=== PATIENT | male | born 1960 | race Caucasian/White ===

== ENCOUNTER → 2016-11-30 | Outpatient (CLI) | payer BC | END | disposition home or self-care (01) | LOC: LABPAT 07:17 | PROVIDERS: ATTEND Orthopaedic Surgery | DX: Z01.812 Encounter for preprocedural laboratory examination (principal) | CPT/HCPCS: 87070 ==

== ENCOUNTER 2016-12-06 07:30 | Inpatient (IN) | payer BC ==
[2016-11-29 14:13] VITALS: BMI 39.9
[~2016-12-06 07:30] MED LIST: ACETAMINOPHEN TAB 500 MG TAB PO ONE; DEXAMETHASONE SOD PHOSPHATE 10 MG/ML 1 ML VIAL IV ONE; HYDROmorphone 1 MG/ML 1 ML SYRINGE IVP PRN; MELOXICAM 7.5 MG TAB PO ONE; MIDAZOLAM 2 MG/2 ML VIAL IV PRN; ONDANSETRON 4 MG/2 ML VIAL IVP ONE; ROPIVACAINE 246.25 MG, EPINEPHrine 0.5 MG, KETOROLAC 30 MG, cloNIDine HCL/PF 80 MCG, WA... MISCELLANE ONE; SCOPOLAMINE 1.5MG/72HR PATCH TRANSDERM ONE; TRANEXAMIC ACID 1,000 MG in SODIUM CHLORIDE 0.9% 100 ML IVPB ONE; ceFAZolin 3 GM in SODIUM CHLORIDE 0.9% 100 ML IVPB ONE
[2016-12-06] MEDS: LACTATED RINGERS 1,000 ML IV SCH ×2 (08:40→20:14)
[2016-12-06] MEDS ORDERED: LIDOCAINE 1% 20 ML VIAL (10MG/ML) FOR IV START INTRADERMA ONE (08:40)
[2016-12-06] MEDS ORDERED: MIDAZOLAM 2 MG/2 ML VIAL IV ONE (08:57)
[2016-12-06] MEDS ORDERED: ROPIVACAINE 1,100 MG, SODIUM CHLORIDE 0.9% 330 ML MISCELLANE PRN ×2 (09:19)
--- NOTE | 2016-12-06 09:20 | P.ONQ ---
Anesthesiology Proc Note - PNB - Peripheral Nerve Block Performed Left Adductor Canal Time Out Performed: Yes Procedure Start Time: :40 Procedure Stop Time: :45 Indication: Analgesia Sedation Type: Sedate with meaningful contact maintained Preparation: Sterile Prep Position: Supine Catheter: Indwelling Needle Types: On-Q Needle Size: 50mm (2") Needle Gauge: 18 Technique: Ultrasound Injectate: 0.5% Ropivacaine (see comment for volume) Blood Aspirated: No Pain Paresthesia on Injection Noted: No Resistance on Injection: Normal Events: Uneventful and Well Tolerated
[2016-12-06] MEDS ORDERED: SODIUM CHLORIDE 0.9% 100 ML BAG ONE (10:01)
[2016-12-06] MEDS ORDERED: GLYCOPYRROLATE 0.2 MG/ML 2 ML VIAL ONE (10:01)
[2016-12-06] MEDS ORDERED: MIDAZOLAM 2 MG/2 ML VIAL ONE (10:01)
[2016-12-06] MEDS ORDERED: TRANEXAMIC ACID 1,000 MG/10 ML VIAL ONE (10:01)
[2016-12-06] MEDS ORDERED: PROPOFOL 10 MG/ML 20 ML VIAL IV ONE (10:01)
[2016-12-06] MEDS ORDERED: LACTATED RINGERS 1,000 ML IV ONE (10:30)
[2016-12-06] MEDS ORDERED: ceFAZolin 3,000 MG in SODIUM CHLORIDE 0.9% IRRIGATIO 3,000 ML IRRIGATION ONE (10:33)
--- NOTE | 2016-12-06 11:28 | P.OP ---
Date of Procedure: 12/06/16 Preoperative Diagnosis: Severe osteoarthritis left knee Postoperative Diagnosis: Severe osteoarthritis left knee Procedure(s) Performed: Left total knee arthroplasty Implants: Sanchez and Nephew Oxinium femoral component size 7, left Sanchez & Nephew Taryn II left nonporous tibial baseplate size 7 Sanchez & Nephew size 11 mm Legion XLPE high flexion articular insert, size 7-8 Sanchez & Nephew Taryn II resurfacing patellar component, 35 mm All components were cemented using Leonid bone cement.. The articulation is ceramic on polyethylene. Anesthesia: spinal Surgeon: Elvin Torres Seamer Elastic Band #1: Mildred Cano Estimated Blood Loss (ml): 50 Pathology: other Condition: stable Disposition: PACU Indications for Procedure: After failure of conservative treatment we discussed the surgical and nonsurgical treatment options at length. Patient wishes to proceed with a total knee arthroplasty. Complications specific to this procedure were discussed at length, including but not limited to infection, bleeding, stiffness , and nerve injury. Patient is aware of all these complications and informed consent was obtained Operative Findings: The operative findings are consistent with severe osteoarthritis of the left knee Description of Procedure: Patient was seen in the preoperative area consent was reviewed and operative site was marked with a skin marker. Patient was then brought to the operating room and given preoperative antibiotics intravenously. A spinal anesthetic was administered by the anesthesia department. A Rivera catheter was then placed by the nursing staff. A tourniquet was placed on the upper thigh and the lower extremity was prepped and draped in usual sterile fashion. A gram of transexamic acid was given. A universal timeout was then performed which confirmed the patient's name, surgical site, ALLERGIES, and consent. The lower extremity was then exsanguinated and tourniquet was inflated to 350 mmHg. A standard and anterior midline approach to the knee was performed. The skin and subcutaneous tissue was dissected down to the patellar tendon. A medial parapatellar arthrotomy was then performed. The knee was then extended, the patellar was everted, and the knee was again flexed. Anterior horns of both menisci were excised, and a release was performed to the posterior medial aspect of the knee. On gross visual inspection, there was complete loss of articular cartilage in the medial and patellofemoral joint spaces. There was also significant cartilage damage in the lateral compartment. There were multiple periarticular osteophytes which were then removed with a Ronguer. The femoral canal was then opened with the appropriate drill, and the intramedullary femoral cutting guide was then placed and set for 4 of valgus. The distal femoral cutting block was then pinned in place, and the distal femur was then cut. The cutting block was then removed and the cut was checked for flatness. Next, the sizing guide was then placed and set for 3 external rotation based off of the epicondylar axis and Whitesides line. After the femur was sized, the appropriate 4-in-1 cutting block was then pinned in place. The anterior condyles were cut without notching. The posterior and chamfer cuts were performed while protecting the collateral ligaments. The cutting block was then removed, and the femoral canal was plugged with autologous bone. Attention was then directed to the tibia. The remaining ACL was removed with a Ronguer, and the tibia was then gently subluxed forward with a large bent knee retractor. Any remaining menisci was excised. The posterior lateral corner was cauterized in order to cauterize the lateral geniculate artery. The extra medullary tibial cutting guide was then placed, set for the appropriate rotation , slope, and depth of resection. The proximal tibia cutting guide was then pinned in place. Proximal tibia was then cut and sized. Next trials were then placed with the appropriate-sized insert. The knee was able to fully extend and flex to 130 and was stable throughout all range of motion. The knee was then extended, patella everted. Patella was then measured, and then using an osteotomy guide, the patella was cut at the appropriate level. The patella was then measured and drilled and the patella trial was then placed. The knee was then taken through range of motion with the patella trial and the patella tracked normally. The knee was then extended patella trial was then removed and the patella was everted. Knee was then flexed and lug holes were drilled through the femoral trial and the femoral trial was then removed. The tibial was then exposed, and the tibial broach guide was then pinned in place after it was set for the appropriate rotation to allow for the most coverage without overhang. The tibia was then broached. The cut surfaces of bone were then irrigated with pulsatile lavage. The posterior structures were injected with the ropivacaine solution. The knee was also irrigated with Irrisept solution. The components were then opened, the cement was mixed, and the components were then cemented in place. The cement was allowed to harden with the knee in full extension. While the cement was hardening, the remaining soft tissues were injected with the ropivacaine solution. After the cemented hardened. The tourniquet was released, and hemostasis was obtained. A second gram of transexamic acid was given. The knee was again irrigated. The knee was again taken through range of motion and found to be stable throughout all range of motion of 0-130, and the patella tracked normally. The fascia was then closed with #2 strata fix suture. The subcutaneous tissue was closed with 3-0 Vicryl and 3-0 strata fix. Dermabond tape was used for the skin, and the patient was placed in a sterile dressing. Patient was then transferred to recovery room in stable condition. The switchboard operator assistant JUSTINO East was required due the complexity surgery and the need for a skilled surgical nurse practitioner. She assisted in positioning, draping , retraction, and closure of the wound.
[2016-12-06] MEDS ORDERED: NALOXONE 0.4 MG/ML 1 ML VIAL IV PRN (11:56)
[2016-12-06] MEDS ORDERED: HYDROmorphone 1 MG/ML 1 ML SYRINGE IVP PRN ×3 (11:56)
[2016-12-06] MEDS ORDERED: BISACODYL 10 MG SUPP RECTAL PRN (11:56)
[2016-12-06] MEDS ORDERED: DIAZEPAM 5 MG TAB PO PRN ×2 (11:56)
[2016-12-06] MEDS ORDERED: ONDANSETRON 4 MG/2 ML VIAL IVP PRN (11:56)
[2016-12-06] MEDS ORDERED: HYDROcodone/APAP 5-325MG 1 EACH TAB PO PRN (11:56)
[2016-12-06] MEDS ORDERED: MAGNESIUM HYDROXIDE 2,400 MG/10 ML CUP PO PRN (11:56)
--- NOTE | 2016-12-06 12:17 | XR ---
EXAMINATION TYPE: XR knee limited LT DATE OF EXAM: 12/06/2016 12:12 PM COMPARISON: NONE HISTORY: 56-year-old male evaluation for postop abnormality and alignment TECHNIQUE: Portable AP and crosstable lateral views FINDINGS: Images show placement of left total knee arthroplasty. Both distal femoral and proximal tibial compon ents of the prosthesis are well seated without periprosthetic fracture. Alignment is grossly anatomic . There is anterior soft tissue swelling and soft tissue gas as well as intra-articular air related t o recent operation. IMPRESSION: Uncomplicated postoperative appearance left total knee arthroplasty.
[2016-12-06] MEDS: SODIUM CHLORIDE 0.9% 1,000 ML IV SCH (14:45)
[2016-12-06 15:31] VITALS: RESP 16
[2016-12-06] MEDS: ceFAZolin 3 GM in SODIUM CHLORIDE 0.9% 100 ML IVPB SCH (16:55)
[2016-12-06] MEDS: ASPIRIN 325 MG TAB PO SCH (20:12)
[2016-12-06] MEDS: SENNOSIDES-DOCUSATE SODIUM 1 EACH TAB PO SCH (20:12)
[2016-12-07] MEDS: SODIUM CHLORIDE 0.9% 1,000 ML IV SCH ×3 (00:21→20:21)
[2016-12-07] MEDS: ceFAZolin 3 GM in SODIUM CHLORIDE 0.9% 100 ML IVPB SCH (00:21)
[2016-12-07] MEDS: hydrOXYzine PAMOATE 25 MG CAP PO PRN ×4 (05:07→21:29)
[2016-12-07] MEDS: HYDROcodone/APAP 5-325MG 1 EACH TAB PO PRN ×4 (05:07→21:29)
[2016-12-07 07:30] LABS: Basophils # (A) 0.1 k/uL (0-0.2); Basophils % (A) 1 %; CH 30.3; CHCM 33.6; Eosinophils % (A) 0 %; HCT 42.6 % (39.0-53.0); HGB 13.7 gm/dL (13.0-17.5); Luc # (Auto) 0.26; Luc % (Auto) 3; Lymphocytes # (A) 1.4 k/uL (1.0-4.8); Lymphocytes % (A) 17 %; MCH 29.2 pg (25.0-35.0); MCHC 32.2 g/dL (31.0-37.0); MCV 90.7 fL (80.0-100.0); Mean Platelet Volume 8.2; Monocytes # (A) 0.4 k/uL (0-1.0); Monocytes % (A) 5 %; Neutrophils # (A) 6.1 k/uL (1.3-7.7); Neutrophils % (A) 74 %; RDW 14.1 % (11.5-15.5); WBC 8.3 k/uL (3.8-10.6); WBC (Perox) 8.73
[2016-12-07] MEDS: ASPIRIN 325 MG TAB PO SCH ×2 (07:53→20:26)
[2016-12-07] MEDS: LISINOPRIL-HCTZ 10-12.5 MG 1 EACH TAB PO SCH (07:53)
[2016-12-07] MEDS: MELOXICAM 7.5 MG TAB PO SCH (07:53)
--- NOTE | 2016-12-07 11:52 | CONS ---
DATE OF CONSULTATION: 12/06/2016 REASON FOR CONSULTATION: Medical management requested by Dr. Torres. CONSULTATION: This is a pleasant 56-year-old patient of Dr. Sheikh whose chronic stable medical conditions include hypertension, constipation, and osteoarthritis. Patient did undergo a left total knee arthroplasty. Post procedure sitting up in a chair, tolerating a diet. No nausea, vomiting. No cardiac history. Pain it controlled. REVIEW OF SYSTEMS: CONSTITUTIONAL: None. HEENT: None. RESPIRATORY: None. CARDIOVASCULAR: None. GASTROINTESTINAL: Constipation. GENITOURINARY: None. MUSCULOSKELETAL: Aches and pains in the joints especially the knees and ankles. DERMATOLOGICAL: None. HEMATOLOGICAL: None. LYMPHATIC: None. PSYCHIATRY: None. NEUROLOGICAL: None. PAST MEDICAL HISTORY: History of hypertension, constipation, osteoarthritis. PAST SURGICAL HISTORY: Bowel resection for ruptured colon, ORIF of the left hand, arthroscopy of the knees. SOCIAL HISTORY: Patient drinks about 3 days a week. Works at [employer]. . No smoking. FAMILY HISTORY: Pancreatic cancer. HOME MEDICATIONS: 1. Claritin 10 mg a day. 2. Zestoretic /12.5, 1 tablet daily. 3. Motrin 800 mg t.i.d. p.r.n. ALLERGIES: None. On examination, temperature 97.6, pulse 70, respiration 16, blood pressure 127/53, pulse ox 94% on room air. GENERAL APPEARANCE: Well built, BMI of 39.5. Sitting up in a chair got up, comfortable. EYES: Pupils equal. Conjunctivae normal. HEENT: Oral cavity normal. NECK: JVD not raised. Mass not palpable. RESPIRATORY: Effort normal. Lungs are clear. CARDIOVASCULAR: First and second sounds normal. No edema. ABDOMEN: Soft, nontender. Liver and spleen not palpable. LYMPHATIC: No lymph node palpable in the neck or axillae. PSYCHIATRY: Alert and oriented x3. Mood and affect normal. NEUROLOGICAL: Pupils equal. Cranial nerves grossly intact. Power and sensation grossly intact. MUSCULOSKELETAL: Some osteoarthritis in the hands and right knee. Left knee in a dressing. INVESTIGATIONS: No blood work. ASSESSMENT: 1. Left total knee arthroplasty. 2. Primary osteoarthritis of the knees and probably the hands. 3. Essential hypertension. 4. Obesity, body mass index of 39.9. PLAN: Patient's lisinopril and hydrochlorothiazide will be started. The patient on DVT prophylaxis with aspirin. Pain control is in place. Patient should see a dietitian for weight loss measures and follow up with family doctor for the same. Thank you, Dr. Torres.
--- NOTE | 2016-12-07 12:33 | P.PN ---
Subjective Principal diagnosis: Status post left total knee This is a pleasant 56-year-old gentleman who is status post left total knee arthroplasty. The patient is seen and evaluated at bedside this morning. His pain is under fair control. He's been up walking with physical therapy. He has no other complaints this time. Objective - Vital Signs Vital signs: Vital Signs Temp 98.1 F 12/07/16 07:00 Pulse 95 12/07/16 08:38 Resp 16 12/07/16 08:00 BP 134/84 12/07/16 08:38 Pulse Ox 92 L 12/07/16 07:00 Intake & Output 12/06/16 12/07/16 12/07/16 18:59 06:59 18:59 Intake Total 1861 360 Output Total 50 400 400 Balance 1811 -400 -40 Weight 122.47 kg 122.47 kg Intake: IV 1501 Oral 360 360 Output: Urine 400 400 Estimated Blood Loss 50 Other: Voiding Method Toilet Toilet Urinal Urinal # Voids 1 1 - Exam The patient does not appear in acute distress. Alert and orientated 3. Dressing is clean dry and intact. Incision appears fine with no erythema or active drainage. Calf is soft and nontender. Good foot and ankle motion without difficulty. Sensation and circulatory status is intact. - Labs CBC & Chem 7: 12/07/16 07:05 Labs: Abnormal Lab Results - Last 24 Hours (Table) 12/07/16 Range/Units 07:05 Plt Count 131 L (150-450) k/uL Assessment and Plan (1) Primary osteoarthritis of left knee Status: Acute (2) Status post left knee replacement Status: Acute Plan: 1. Continue with routine postoperative care. 2. Anticoagulation with aspirin. 3. Physical therapy and CPM today. 4. Appreciate input from medicine. 5. Anticipate discharge to home with home care likely tomorrow.
[2016-12-07] MEDS: LACTATED RINGERS 1,000 ML IV SCH (20:21)
[2016-12-07] MEDS: SENNOSIDES-DOCUSATE SODIUM 1 EACH TAB PO SCH (20:26)
--- NOTE | 2016-12-07 23:06 | PN ---
DATE OF SERVICE: 12/07/2016 PRESENTING COMPLAINT: Left knee surgery. INTERVAL HISTORY: Patient is status post left knee surgery, doing better. Did work with Physical Therapy. No chest pain, shortness of breath. nausea, vomiting. Did tolerate his diet. Review of systems done for constitutional, cardiovascular, GI, pulmonary; relevant findings as above. Current medications are reviewed. On examination, temperature 97.6, pulse 65, respiration 16, blood pressure 109/77, pulse ox 92% on room air. GENERAL APPEARANCE: Lying in bed, comfortable. EYES: Pupils equal. Conjunctivae normal. NECK: JVD not raised. Mass not palpable. RESPIRATORY: Effort normal. Lungs are clear. CARDIOVASCULAR: First and second sounds normal. No edema. ABDOMEN: Soft, nontender. Liver and spleen not palpable. PSYCHIATRY: Alert and oriented x3. Mood and affect normal. INVESTIGATIONS: Potassium 4.7. ASSESSMENT: 1. Left total knee arthroplasty. 2. Primary osteoarthritis of the knees and probably the hands. 3. Essential hypertension. 4. Obesity; body mass index of 39.9. 5. Thrombocytopenia, cause unknown. PLAN: Continue current medication and treatment plan. Will repeat a CBC in the morning to make sure the ( ) no further significant drop. Care was discussed with the patient.
[2016-12-08 01:34] VITALS: PULSE 74
[2016-12-08] MEDS: hydrOXYzine PAMOATE 25 MG CAP PO PRN (04:52)
[2016-12-08] MEDS: HYDROcodone/APAP 5-325MG 1 EACH TAB PO PRN (04:52)
[2016-12-08 07:24] VITALS: BP 125/79; TEMP 98
[2016-12-08 07:29] LABS: Basophils # (A) 0.1 k/uL (0-0.2); Basophils % (A) 1 %; CH 30.3; CHCM 33.2; Eosinophils # (A) 0.2 k/uL (0-0.7); Eosinophils % (A) 3 %; HCT 41.2 % (39.0-53.0); HDW 2.62; HGB 13.5 gm/dL (13.0-17.5); Luc # (Auto) 0.28; Luc % (Auto) 3; Lymphocytes # (A) 1.3 k/uL (1.0-4.8); Lymphocytes % (A) 16 %; MCH 30.1 pg (25.0-35.0); MCHC 32.8 g/dL (31.0-37.0); MCV 91.6 fL (80.0-100.0); Mean Platelet Volume 8.2; Monocytes # (A) 0.5 k/uL (0-1.0); Monocytes % (A) 6 %; Neutrophils # (A) 5.9 k/uL (1.3-7.7); Neutrophils % (A) 71 %; WBC 8.3 k/uL (3.8-10.6); WBC (Perox) 8.58
--- NOTE | 2016-12-08 08:36 | P.DS ---
Providers Date of admission: 12/06/16 07:47 Expected date of discharge: 12/08/16 Attending physician: Elvin Torres Consults: 12/06/16 11:56 Consult Physician Routine Consulting Provider: Constantine Parsons Consult Reason/Comments: medical management Do you want consulting provider notified?: Yes Primary care physician: Stated None - Discharge Diagnosis(es) (1) Primary osteoarthritis of left knee Current Visit: Yes Status: Acute (2) Status post left knee replacement Current Visit: Yes Status: Acute Hospital Course: This is a pleasant 56-year-old gentleman last seen in our office with complaints of left knee pain. Patient has known history of degenerative arthritis of the left knee and presented to discuss options. After discussion and consideration, the patient elected to proceed with a left total knee arthroplasty. Patient was seen preoperatively, and medically cleared for surgery by his primary care physician. Patient was admitted to [facility] and underwent left total knee arthroplasty with Dr. Elvin Torres. The procedure was performed without complications or sequelae. The patient is seen and evaluated at bedside today. Pain is well-controlled. Patient has no new complaints today and denies any fevers, chills, nausea, vomiting, or shortness of breath. Vital signs are stable. Dressing is clean dry and intact. Incision looks fine with no erythema or active drainage. Calf is soft and nontender. Patient has full foot and ankle motion without difficulty. Patient's left lower extremity is neurovascularly intact. The patient is orthopedically stable for discharge today. Pertinent Studies: Laboratory Tests 12/08/16 06:53 WBC 8.3 RBC 4.50 Hgb 13.5 Hct 41.2 MCV 91.6 Patient Condition at Discharge: Good Plan - Discharge Summary New Discharge Prescriptions: Aspirin 325 mg PO BID #60 tab HYDROcodone/APAP 7.5-325MG [Ullin 7.5] 1 - 2 each PO Q6HR PRN #90 tab PRN Reason: Pain Sennosides-Docusate Sodium [Senokot-S] 2 tab PO DAILY #60 tablet Discharge Medication List Ibuprofen [Motrin] 800 mg PO TID PRN 11/29/16 [History] Lisinopril-Hctz 10-12.5 mg [Zestoretic 10-12.5] 1 tab PO QAM 11/30/16 [History] Loratadine [Claritin] 10 mg PO DAILY 12/06/16 [History] Aspirin 325 mg PO BID #60 tab 12/08/16 [Rx] HYDROcodone/APAP 7.5-325MG [Ullin 7.5] 1 - 2 each PO Q6HR PRN #90 tab 12/08/16 [ Rx] Sennosides-Docusate Sodium [Senokot-S] 2 tab PO DAILY #60 tablet 12/08/16 [Rx] Follow up Appointment(s)/Referral(s): [facility], [NON-STAFF] - 1 Week Elvin Torres DO [Doctor of Osteopathic Medicine] - 2 Weeks Ambulatory/Diagnostic Orders: Continuous Passive Motion (CPM) Machine [DME.AMB1] Location: Determined By Patient Activity/Diet/Wound Care/Special Instructions: call [facility] when you get home to deliver your CPM - [phone] Weightbearing as tolerated with a walker CPM daily Daily dressing changes, keep incision clean and dry [facility] with questions or concerns [phone] Discharge Disposition: HOME WITH HOME HEALTH SERVICES
--- NOTE | 2016-12-08 09:19 | P.PN ---
Progress Note - Text The patient is status post left adductor canal catheter placement. The catheter was placed for postoperative pain control, status post total left arthroplasty, postoperative day #2. Ropivacaine 0.2% is infusing at 8 mLs per hour. The patient has no complaints of left lower extremity numbness or weakness. Patient's VAS score is 2-10. Assessment: Patient's adductor canal catheter is in place and working appropriately. Plan: continue infusion and adjust it as needed.
[2016-12-08] MEDS: LISINOPRIL-HCTZ 10-12.5 MG 1 EACH TAB PO SCH (09:26)
[2016-12-08] MEDS: ASPIRIN 325 MG TAB PO SCH (09:26)
[2016-12-08] MEDS: MELOXICAM 7.5 MG TAB PO SCH (09:26)
--- NOTE | 2016-12-09 08:36 | PN ---
DATE OF SERVICE: 12/08/2016 PRESENTING COMPLAINT: Left knee surgery. INTERVAL HISTORY: Patient is status post left knee surgery. Seen by me this morning. Continues to do better. No chest pain or short of breath. Tolerating his diet. Review of systems done for constitutional, cardiovascular, GI, pulmonary, musculoskeletal; relevant findings as above. Current medications are reviewed. On examination, temperature 98, pulse 71, respirations 16, blood pressure 125/79, pulse ox 94% on room air. GENERAL APPEARANCE: Sitting up. Comfortable. EYES: Pupils equal. Conjunctivae normal. NECK: JVD not raised. Mass not palpable. RESPIRATORY: Effort normal. Lungs are clear. CARDIOVASCULAR: First and second sounds normal. No edema. ABDOMEN: Soft, nontender. Liver and spleen not palpable. PSYCHIATRY: Alert and oriented x3. Mood and affect is normal. INVESTIGATIONS: Hemoglobin 13.5. ASSESSMENT: 1. Left total knee arthroplasty. 2. Primary osteoarthritis of the knees and probably the hands. 3. Essential hypertension. 4. Obesity, body mass index 39.9. 5. Thrombocytopenia, cause unknown. PLAN: Stable. Continue current medication and treatment plan. Platelets are corrected. The patient to follow with his family doctor.
== END 2016-12-08 11:42 | disposition home health service (06) | DRG 470 ==
LOC: 2ORMAIN 07:47 → 3SUR 11:58
PROVIDERS: ADMIT Orthopaedic Surgery; ATTEND Orthopaedic Surgery
PROC: 0SRD0J9 Replacement of Left Knee Joint with Synthetic Substitute, Cemented, Open Approach (ICD-10-PCS; principal; 2016-12-06 09:40)
DX: M17.12 Unilateral primary osteoarthritis, left knee (principal); D69.6 Thrombocytopenia, unspecified; I10 Essential (primary) hypertension; E66.9 Obesity, unspecified; Z68.39 Body mass index [BMI] 39.0-39.9, adult; Z79.899 Other long term (current) drug therapy
CPT/HCPCS: 81001; 85025; 87070; 88300

== ENCOUNTER → 2017-07-14 | Outpatient (CLI) | payer BC ==
--- NOTE | 2017-07-14 20:07 | CONS ---
CONSULTATION DATE OF SERVICE: 07/14/2017. 57-year-old gentleman who has been evaluated in [facility] for possible obstructive sleep apnea-hypopnea syndrome. HISTORY OF PRESENT ILLNESS/SLEEP WAKE EVALUATION: Patient's usual sleep schedule on working days from around 10:00 p.m. until 4:45 a.m. and on weekends from midnight until 8:00 to 9:00 a.m. No problems with falling asleep, although he has TV set in bedroom. He prefers to sleep on the side position not to sleep on the back. He snores, wakes up from sleep 2 times with 1 episode of nocturia during the day. Sometimes he feels tiredness. [place] Sleepiness Scale is 7. No history of hypnagogic hallucinations, sleep paralysis or cataplexy. PAST MEDICAL HISTORY: Positive for hypertension. PAST SURGICAL HISTORY: Left knee total replacement, colon resection for perforation in 2008, right knee arthroscopic surgery. MEDICATIONS: Lisinopril, Motrin. SOCIAL HISTORY: Negative for smoking. Alcohol consumption about 5 beers 3 times per week. REVIEW OF SYSTEMS: Awakenings from sleep, sometimes feeling tiredness and sleepy during the day. No fevers No double vision. No recent chest pain. No shortness of breath. No abdominal pain. No bleeding episodes. No blood in urine. No seizure episodes. FAMILY HISTORY: Hypertension, arthritis, cancer. PHYSICAL EXAM: GENERAL: gentleman without distress VITAL SIGNS: BP 186/93, HR 78, RR 16, height 5 feet 7 inches, weight 282, BMI 44.1, neck 20 inches in circumference, temperature 98.2, oxygen saturation on room air 97% HEENT: PERRLA, EOMI. Evaluation of oropharynx showed extremely low position of soft palate, small oropharyngeal air space, restriction of nasal breathing bilaterally, probable nasal septum deviation. Redness of the skin face. History of possible nasal fracture in the past secondary to sport activity. NECK: Supple. No JVD. Thyroid is not palpable. LUNGS: clear to percussion and to auscultation. Good air exchange. No wheezing or rhonchi. HEART: S1, S2 regular. No murmurs, gallops or rubs. ABDOMEN: Obese. Soft and nontender. Bowel sounds are present. No organomegaly appreciated. EXTREMITIES: 1+ bilateral ankle edema. No cyanosis or clubbing. COMPUTER SYSTEMS MANAGER: Awake, alert and oriented x3. Cranial nerves II through VII intact. There is no fasciculation or atrophy noted. No focal deficits observed. IMPRESSION: 1. Snoring, awakenings from sleep, extremely small oropharyngeal air space, restriction of nasal breathing, very wide neck 20 inches, obstructive sleep apnea- hypopnea syndrome. 2. Obesity, BMI 44.1. 3. Hypertension. The patient did not take his medications today. 4. Status post colon resection for perforation. 5. Status post total left knee replacement. 6. Status post right knee arthroscopic surgery. 7. Nasal septum deviation with restriction of nasal breathing bilaterally. 8. History of possible nasal fracture in the past secondary to sport activity. 9. Alcohol consumption up to 5 beers 3 times per week. PLAN: 1. Polysomnography for evaluation of patient's breathing during sleep. 2. CPAP/BiPAP titration if sleep study confirms obstructive sleep apnea-hypopnea syndrome. 3. Preferable position during sleep on the side. 4. No driving if patient feels any sleepiness. Patient is aware of civil and criminal liability for unsafe driving. 5. I will see the patient for follow-up visit to explain results of the testing and following plan. Thank you very much for referring this patient for consultation. Sincerely, Donnell Wadsworth MD, PhD, FAASM Diplomat of [place] [employer], Sleep Medicine Board by [place] [employer] [place] [employer] Powerplant Mechanic of [facility] [place] MMODL / LIZBETN: [id number] /
== END ==
LOC: SLEEP 16:16
PROVIDERS: ATTEND Internal Medicine
DX: G47.33 Obstructive sleep apnea (adult) (pediatric) (principal); E66.9 Obesity, unspecified; Z68.41 Body mass index [BMI] 40.0-44.9, adult; I10 Essential (primary) hypertension; Z96.652 Presence of left artificial knee joint
CPT/HCPCS: 99211

== ENCOUNTER 2021-01-29 19:46 | Inpatient (IN) | payer BC, OTHER ==
[2021-01-29] MEDS ORDERED: NITROGLYCERIN SL TABS 0.4 MG TAB SUBLINGUAL PRN (20:14)
[2021-01-29] MEDS ORDERED: HEPARIN SODIUM 1,000 UN/ML (10ML VL) IV ONE (20:17)
[2021-01-29] MEDS ORDERED: HEPARIN SODIUM 1,000 UN/ML (10ML VL) IV PRN (20:17)
[2021-01-29 20:19] LABS: Glucose,Whole Blood 130 mg/dL (75-99)
[2021-01-29] MEDS ORDERED: METOCLOPRAMIDE 5 MG/ML 2 ML VIAL IVP STA (20:21)
[2021-01-29] MEDS ORDERED: FUROSEMIDE 10 MG/ML 4 ML VIAL IV STA (20:23)
[2021-01-29 20:29] LABS: Basophils % (A) 1 %; Eosinophils % (A) 1 %; Lymphocytes # (A) 0.7 k/uL (1.0-4.8); Lymphocytes % (A) 43 %; MCH 31.8 pg (25.0-35.0); MCHC 34.6 g/dL (31.0-37.0); Mean Platelet Volume 7.9; Monocytes # (A) 0.1 k/uL (0-1.0); Monocytes % (A) 3 %; Neutrophils % (A) 51 %; Platelet Count 117 k/uL (150-450); RBC 6.16 m/uL (4.30-5.90); RDW 14.1 % (11.5-15.5); WBC 1.5 k/uL (3.8-10.6)
[2021-01-29] MEDS ORDERED: HEPARIN SOD,PORK IN 0.45% NACL 25,000 UNIT in 0.45% NACL 1 250ML.BAG IV SCH (20:30)
--- NOTE | 2021-01-29 20:34 | ED ---
General Adult HPI - General Chief complaint: Shortness of Breath Stated complaint: TAJ Time Seen by Provider: 01/29/21 20:15 Source: patient Mode of arrival: wheelchair Limitations: no limitations - History of Present Illness Initial comments: Dictation was produced using [employer] dictation software. please excuse any grammatical, word or spelling errors. This patient was cared for during a federal and state declared state of emergency secondary to Covid 19 Chief Complaint: 60-year-old male presents to the emergency department for acute dyspnea History of Present Illness: 60-year-old male with no known medical comorbidities presents to the emergency far for acute dyspnea. 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 She states that he has been feeling nauseated and mildly dyspneic over the last 48-72 hours. Today his symptoms got progressively worse. He had some soup and some tacos. He went to [facility] when all of a sudden he became very faint and severely winded. He does not have a regular medical doctor. Patient states that he is very dyspneic. He also notices swelling in his legs. Denies any calf pain, popliteal pain or medial thigh pain. No history of blood clots. He has no pain complaints. is at bedside assisting with providing history of present illness. The ROS documented in this emergency department record has been reviewed and confirmed by me. Those systems with pertinent positive or negative responses have been documented in the HPI. All other systems are other negative and/or noncontributory. PHYSICAL EXAM: General Impression: Severe distress, acutely dyspneic, cyanotic HEENT: Normocephalic atraumatic, extra-ocular movements intact, pupils equal and reactive to light bilaterally Cardiovascular: Tachycardic irregular, no obvious murmurs Chest: 2 word sentences, diminished lung sounds bilaterally, significantly dyspneic Abdomen: abdomen soft, non-tender, non-distended, cyanotic abdomen with mottling Musculoskeletal: Pulses present and equal in all extremities, 3+ pitting edema to the bilateral lower extremities Motor: no focal deficits noted Neurological: CN II-XII grossly intact, no focal motor or sensory deficits noted Skin: Ashen, cyanotic ED course: 60-year-old male presents with severe, acute dyspnea. Patient does not follow up with a primary care doctor or any other medical claims processor. He has no known comorbidities. Vital signs upon arrival shows respiratory rate of 30, 87% on room air. He has no symptoms of DVT. Patient's heart rate is regular. EKG shows atrial fibrillation with rapid ventricular rate with a rate of 124. Has new onset A. fib. point of care bedside ultrasound was performed showing diffuse B lines in his upper lung aguilar suggesting congestive heart failure. Given patient's body habitus unable to get good views of cardiac wi ndows. However no observable pericardial effusion. Patient is placed on BiPAP. Patient still complaining of dyspnea despite several minutes on noninvasive ventilation. He still continued to be tachycardic. Cardioversion was attempted with no success. He is given 100 mg of IV ketamine. At this point no clear diagnosis. There is still concern of PE. Patient started on heparin. Given Decadron for potential COPD exacerbation versus coronavirus. Patient given and 10 mg of nebulized albuterol and 0.5 mg of Atrovent patient reevaluated after breathing treatment with improvement of symptoms. He is moving air a lot better and does report feeling significantly improved. At this point there is concern of bronchospasm. The chest was obtained showing no ground glass opacities. There does appear to be some mild interstitial phase edema. There is no evidence of pulmonary embolus. Patient reevaluated approximately 10:20 PM stable medical condition. He was asking to be discharged however considering his presentation it was not recommended. Furthermore patient has atrial fibrillation of unknown duration. He is currently on heparin and Cardizem he will need to be value by cardiology for new onset A. fib. EKG interpretation: Ventricular rate 124, A. fib with RVR, QRS 82, QTc 502. No LA prolongation, no QTC prolongation, no ST or T-wave changes noted. - Related Data Home Medications Medication Instructions Recorded Confirmed Lisinopril-Hctz 10-12.5 mg 1 tab PO QAM 11/30/16 01/29/21 [Zestoretic 10-12.5] Allergies Allergy/AdvReac Type Severity Reaction Status Date / Time No Known Allergies Allergy Verified 01/29/21 20:59 Review of Systems ROS Statement: Those systems with pertinent positive or pertinent negative responses have been documented in the HPI. ROS Other: All systems not noted in ROS Statement are negative. Past Medical History Past Medical History: Hypertension Additional Past Medical History / Comment(s): constipation,hx ruptured colon History of Any Multi-Drug Resistant Organisms: None Reported Past Surgical History: Bowel Resection, Orthopedic Surgery Additional Past Surgical History / Comment(s): ORIF lt hand,orthoscopic kilo knees Past Anesthesia/Blood Transfusion Reactions: Postoperative Nausea & Vomiting (PONV) Additional Past Anesthesia/Blood Transfusion Reaction / Comment(s): no hx blood transfusion Past Psychological History: No Psychological Hx Reported Smoking Status: Former smoker Past Alcohol Use History: Occasional Past Drug Use History: None Reported - Past Family History Mother Family Medical History: Cancer Additional Family Medical History / Comment(s): pancreatic Father Family Medical History: Cancer Additional Family Medical History / Comment(s): bone General Exam Limitations: no limitations Course Vital Signs 01/29/21 01/29/21 01/29/21 19:56 20:08 20:30 Temperature 97.8 F Pulse Rate 76 102 H 115 H Respiratory 30 H 32 H 38 H Rate Blood Pressure 151/95 179/135 111/73 O2 Sat by Pulse 87 L 93 L 94 L Oximetry 01/29/21 01/29/21 01/29/21 20:47 21:04 21:18 Temperature Pulse Rate 154 H 124 H 100 Respiratory 40 H Rate Blood Pressure 120/71 146/109 O2 Sat by Pulse 96 95 Oximetry 01/29/21 01/29/21 01/29/21 21:25 21:28 22:00 Temperature 98.1 F Pulse Rate 98 108 H 102 H Respiratory 32 H 30 H Rate Blood Pressure 94/56 119/80 O2 Sat by Pulse 98 92 L Oximetry Medical Decision Making - Lab Data Result diagrams: 01/29/21 20:18 01/29/21 20:18 Lab Results 01/29/21 01/29/21 01/29/21 Range/Units 20:17 20:18 20:18 WBC 1.5 L (3.8-10.6) k/uL RBC 6.16 H (4.30-5.90) m/uL Hgb 19.6 H* (13.0-17.5) gm/dL Hct 56.7 H (39.0-53.0) % MCV 92.0 (80.0-100.0) fL MCH 31.8 (25.0-35.0) pg MCHC 34.6 (31.0-37.0) g/dL RDW 14.1 (11.5-15.5) % Plt Count 117 L (150-450) k/uL MPV 7.9 Neutrophils % 51 % Lymphocytes % 43 % Monocytes % 3 % Eosinophils % 1 % Basophils % 1 % Neutrophils # 0.8 L (1.3-7.7) k/uL Lymphocytes # 0.7 L (1.0-4.8) k/uL Monocytes # 0.1 (0-1.0) k/uL Eosinophils # 0.0 (0-0.7) k/uL Basophils # 0.0 (0-0.2) k/uL PT (9.0-12.0) sec INR (<1.2) APTT (22.0-30.0) sec D-Dimer (<0.60) mg/L FEU Sample Site ABG pH (7.35-7.45) ABG pCO2 (35-45) mmHg ABG pO2 (83-108) mmHg ABG HCO3 (21-25) mmol/L ABG Total CO2 (19-24) mmol/L ABG O2 Saturation (94-97) % ABG Base Excess mmol/L Crispin Test FiO2 % Sodium 141 (137-145) mmol/L Potassium 3.6 (3.5-5.1) mmol/L Chloride 107 (98-107) mmol/L Carbon Dioxide 25 (22-30) mmol/L Anion Gap 9 mmol/L BUN 23 H (9-20) mg/dL Creatinine 1.34 H (0.66-1.25) mg/dL Est GFR (CKD-EPI)AfAm 66 (>60 ml/min/1.73 sqM) Est GFR (CKD-EPI)NonAf 57 (>60 ml/min/1.73 sqM) Glucose 130 H (74-99) mg/dL POC Glucose (mg/dL) 130 H (75-99) mg/dL POC Glu Rn Cvicu ID Ramiro Raymond Plasma Lactic Acid Slade (0.7-2.0) mmol/L Calcium 9.0 (8.4-10.2) mg/dL Magnesium 1.8 (1.6-2.3) mg/dL Total Bilirubin 0.7 (0.2-1.3) mg/dL AST 40 (17-59) U/L ALT 29 (4-49) U/L Alkaline Phosphatase 125 (38-126) U/L Troponin I (0.000-0.034) ng/mL NT-Pro-B Natriuret Pep pg/mL Total Protein 6.9 (6.3-8.2) g/dL Albumin 4.1 (3.5-5.0) g/dL Lipase 146 (23-300) U/L Coronavirus (PCR) (Not Detectd) 01/29/21 01/29/21 01/29/21 Range/Units 20:18 20:18 20:18 WBC (3.8-10.6) k/uL RBC (4.30-5.90) m/uL Hgb (13.0-17.5) gm/dL Hct (39.0-53.0) % MCV (80.0-100.0) fL MCH (25.0-35.0) pg MCHC (31.0-37.0) g/dL RDW (11.5-15.5) % Plt Count (150-450) k/uL MPV Neutrophils % % Lymphocytes % % Monocytes % % Eosinophils % % Basophils % % Neutrophils # (1.3-7.7) k/uL Lymphocytes # (1.0-4.8) k/uL Monocytes # (0-1.0) k/uL Eosinophils # (0-0.7) k/uL Basophils # (0-0.2) k/uL PT (9.0-12.0) sec INR (<1.2) APTT (22.0-30.0) sec D-Dimer (<0.60) mg/L FEU Sample Site ABG pH (7.35-7.45) ABG pCO2 (35-45) mmHg ABG pO2 (83-108) mmHg ABG HCO3 (21-25) mmol/L ABG Total CO2 (19-24) mmol/L ABG O2 Saturation (94-97) % ABG Base Excess mmol/L Crispin Test FiO2 % Sodium (137-145) mmol/L Potassium (3.5-5.1) mmol/L Chloride (98-107) mmol/L Carbon Dioxide (22-30) mmol/L Anion Gap mmol/L BUN (9-20) mg/dL Creatinine (0.66-1.25) mg/dL Est GFR (CKD-EPI)AfAm (>60 ml/min/1.73 sqM) Est GFR (CKD-EPI)NonAf (>60 ml/min/1.73 sqM) Glucose (74-99) mg/dL POC Glucose (mg/dL) (75-99) mg/dL POC Glu Rn Cvicu ID Plasma Lactic Acid Slade 2.2 H* (0.7-2.0) mmol/L Calcium (8.4-10.2) mg/dL Magnesium (1.6-2.3) mg/dL Total Bilirubin (0.2-1.3) mg/dL AST (17-59) U/L ALT (4-49) U/L Alkaline Phosphatase (38-126) U/L Troponin I <0.012 (0.000-0.034) ng/mL NT-Pro-B Natriuret Pep 541 pg/mL Total Protein (6.3-8.2) g/dL Albumin (3.5-5.0) g/dL Lipase (23-300) U/L Coronavirus (PCR) (Not Detectd) 01/29/21 01/29/21 01/29/21 Range/Units 20:18 20:57 21:02 WBC (3.8-10.6) k/uL RBC (4.30-5.90) m/uL Hgb (13.0-17.5) gm/dL Hct (39.0-53.0) % MCV (80.0-100.0) fL MCH (25.0-35.0) pg MCHC (31.0-37.0) g/dL RDW (11.5-15.5) % Plt Count (150-450) k/uL MPV Neutrophils % % Lymphocytes % % Monocytes % % Eosinophils % % Basophils % % Neutrophils # (1.3-7.7) k/uL Lymphocytes # (1.0-4.8) k/uL Monocytes # (0-1.0) k/uL Eosinophils # (0-0.7) k/uL Basophils # (0-0.2) k/uL PT 10.8 (9.0-12.0) sec INR 1.0 (<1.2) APTT 56.1 H (22.0-30.0) sec D-Dimer 13.35 H (<0.60) mg/L FEU Sample Site ABG pH (7.35-7.45) ABG pCO2 (35-45) mmHg ABG pO2 (83-108) mmHg ABG HCO3 (21-25) mmol/L ABG Total CO2 (19-24) mmol/L ABG O2 Saturation (94-97) % ABG Base Excess mmol/L Crispin Test FiO2 % Sodium (137-145) mmol/L Potassium (3.5-5.1) mmol/L Chloride (98-107) mmol/L Carbon Dioxide (22-30) mmol/L Anion Gap mmol/L BUN (9-20) mg/dL Creatinine (0.66-1.25) mg/dL Est GFR (CKD-EPI)AfAm (>60 ml/min/1.73 sqM) Est GFR (CKD-EPI)NonAf (>60 ml/min/1.73 sqM) Glucose (74-99) mg/dL POC Glucose (mg/dL) (75-99) mg/dL POC Glu Rn Cvicu ID Plasma Lactic Acid Slade (0.7-2.0) mmol/L Calcium (8.4-10.2) mg/dL Magnesium (1.6-2.3) mg/dL Total Bilirubin (0.2-1.3) mg/dL AST (17-59) U/L ALT (4-49) U/L Alkaline Phosphatase (38-126) U/L Troponin I (0.000-0.034) ng/mL NT-Pro-B Natriuret Pep pg/mL Total Protein (6.3-8.2) g/dL Albumin (3.5-5.0) g/dL Lipase (23-300) U/L Coronavirus (PCR) Not Detected (Not Detectd) 01/29/21 Range/Units 22:03 WBC (3.8-10.6) k/uL RBC (4.30-5.90) m/uL Hgb (13.0-17.5) gm/dL Hct (39.0-53.0) % MCV (80.0-100.0) fL MCH (25.0-35.0) pg MCHC (31.0-37.0) g/dL RDW (11.5-15.5) % Plt Count (150-450) k/uL MPV Neutrophils % % Lymphocytes % % Monocytes % % Eosinophils % % Basophils % % Neutrophils # (1.3-7.7) k/uL Lymphocytes # (1.0-4.8) k/uL Monocytes # (0-1.0) k/uL Eosinophils # (0-0.7) k/uL Basophils # (0-0.2) k/uL PT (9.0-12.0) sec INR (<1.2) APTT (22.0-30.0) sec D-Dimer (<0.60) mg/L FEU Sample Site RAD ABG pH 7.37 (7.35-7.45) ABG pCO2 38 (35-45) mmHg ABG pO2 86 (83-108) mmHg ABG HCO3 22 (21-25) mmol/L ABG Total CO2 23 (19-24) mmol/L ABG O2 Saturation 95.8 (94-97) % ABG Base Excess -3.6 mmol/L Crispin Test Yes FiO2 40 % Sodium (137-145) mmol/L Potassium (3.5-5.1) mmol/L Chloride (98-107) mmol/L Carbon Dioxide (22-30) mmol/L Anion Gap mmol/L BUN (9-20) mg/dL Creatinine (0.66-1.25) mg/dL Est GFR (CKD-EPI)AfAm (>60 ml/min/1.73 sqM) Est GFR (CKD-EPI)NonAf (>60 ml/min/1.73 sqM) Glucose (74-99) mg/dL POC Glucose (mg/dL) (75-99) mg/dL POC Glu Rn Cvicu ID Plasma Lactic Acid Slade (0.7-2.0) mmol/L Calcium (8.4-10.2) mg/dL Magnesium (1.6-2.3) mg/dL Total Bilirubin (0.2-1.3) mg/dL AST (17-59) U/L ALT (4-49) U/L Alkaline Phosphatase (38-126) U/L Troponin I (0.000-0.034) ng/mL NT-Pro-B Natriuret Pep pg/mL Total Protein (6.3-8.2) g/dL Albumin (3.5-5.0) g/dL Lipase (23-300) U/L Coronavirus (PCR) (Not Detectd) Critical Care Time Critical Care Time: Yes Total Critical Care Time: 33 Disposition Clinical Impression: Acute bronchospasm, New onset a-fib Disposition: ADMITTED IP TO THIS HOSP Condition: Fair Referrals: Heath Sheikh MD [Primary Care Provider] - 1-2 days Decision Time: 22:42
[2021-01-29 20:40] LABS: Albumin 4.1 g/dL (3.5-5.0); Magnesium 1.8 mg/dL (1.6-2.3); Potassium 3.6 mmol/L (3.5-5.1); Total Bilirubin 0.7 mg/dL (0.2-1.3); Total Protein 6.9 g/dL (6.3-8.2)
[2021-01-29] MEDS ORDERED: KETAMINE 10 MG/ML 20 ML VIAL IV STA (20:44)
[2021-01-29 20:49] LABS: HCT 56.7 % (39.0-53.0); HGB 19.6 gm/dL (13.0-17.5); Neutrophils # (A) 0.8 k/uL (1.3-7.7)
[2021-01-29] MEDS ORDERED: DEXAMETHASONE SOD PHOSPHATE 10 MG/ML 1 ML VIAL IV STA (20:54)
[2021-01-29] MEDS ORDERED: IPRATROPIUM 0.5 MG/2.5 ML NEBU INHALATION STA (20:55)
[2021-01-29] MEDS ORDERED: ALBUTEROL NEBULIZED 2.5 MG/3 ML INHALATION STA (20:55)
--- NOTE | 2021-01-29 21:18 | XR ---
EXAMINATION: XR chest 1V portable DATE AND TIME: 01/29/2021 8:19 PM CLINICAL INDICATION: PHH; PAIN TECHNIQUE: AP portable upright COMPARISON: None FINDINGS: The overlying soft tissues are markedly prominent. There is no definite pulmonary edema, although the prominent overlying soft tissues interfere with assessment of the arborization of the pulmonary vasc ulature. The lungs appear to be clear, with the exception of the retrocardiac left lower lobe which shows a zo ne of consolidative opacity with suggestion of air bronchograms consistent with a diagnosis of partia l bronchopneumonia versus atelectasis. The pleural spaces are negative as seen. The cardiac silhouette is moderately enlarged. The remainder of the mediastinal silhouette is unremarkable. The skeletal structures and soft tissues are negative for acute findings. IMPRESSION: Suspicious for partial left lower lobe bronchopneumonia.
[2021-01-29 22:02] LABS: Partial Thromboplastin Time 56.1 sec (22.0-30.0); Prothrombin Time 10.8 sec (9.0-12.0)
--- NOTE | 2021-01-29 22:04 | CT ---
EXAMINATION TYPE: CT angio chest DATE OF EXAM: 01/29/2021 9:54 PM COMPARISON: Chest radiograph 01/29/2021 HISTORY: Positive d-dimer, dyspnea. CT DLP: 919 mGycm Automated exposure control for dose reduction was used. CONTRAST: CTA scan of the thorax is performed with IV Contrast, patient injected with 80 mL of Isovue 370, pulmonary embolism protocol. . FINDINGS: There is moderate patient motion artifact. AIRWAYS: Unremarkable LUNGS: Bibasilar groundglass opacity is noted, greater on the left. This finding can correlate with a clinical diagnosis of early pneumonia. There is also widespread mild gravity-dependent interstitial pattern with thickening of the interloba r fissures but without pleural effusions. This pattern suggests the possibility of mild interstitial pulmonary edema. MEDIASTINUM: There is satisfactory enhancement of the pulmonary artery and its branches, without CT e vidence for pulmonary embolism. The aorta is negative for acute findings. There is mild cardiomegaly. No pericardial effusion. No adenopathy. OTHER: No additional significant abnormality is seen. IMPRESSION: 1. SUSPECT EARLY BIBASILAR PNEUMONIA, GREATER ON THE LEFT. 2. EVIDENCE SUGGESTING MILD INTERSTITIAL PHASE PULMONARY EDEMA.
[2021-01-29 22:07] LABS: ABG Base Excess -3.6 mmol/L; ABG HCO3 22 mmol/L (21-25); ABG Oxygen Saturation 95.8 % (94-97); ABG PCO2 38 mmHg (35-45); ABG PH 7.37 (7.35-7.45); ABG PO2 86 mmHg (83-108); ABG TCO2 23 mmol/L (19-24); Allen Test Performed? Yes
[2021-01-29] MEDS ORDERED: cefTRIAXone IN SWFI 1,000 MG/10 ML SYRINGE IVP STA (22:43)
[2021-01-29] MEDS ORDERED: AZITHROMYCIN 500 MG in SODIUM CHLORIDE 0.9% 250 ML IVPB ONE (23:00)
[2021-01-29] MEDS: DILTIAZEM 125 MG in SODIUM CHLORIDE 0.9% 100 ML IV SCH (23:04)
[2021-01-30 00:25] LABS: Glucose,Whole Blood 122 mg/dL (75-99)
--- NOTE | 2021-01-30 08:38 | P.CRDCN ---
History of Present Illness History of present illness: HISTORY OF PRESENTING ILLNESS This is a pleasant 60-year-old male past medical history significant for hypertension, regular heavy alcohol intake, sleep apnea, marijuana use and cigar smoker. 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 We have been asked to see in consultation for new-onset atrial fibrillation. She presented to the hospital last evening. He states he was bowling when he had an acute onset of feeling dizzy and lightheaded, diaphoretic and short of breath. He had a friend drive him home and then his drove him to the hospital. In the interim he also had an episode of nausea and vomiting. He denies any significant palpitations or chest discomfort. On arrival to the emergency department he was noted to be in atrial fibrillation with rapid ventricular rate. He also was hypoxic at 87%. He was initiated on Bipap and apparently cardioversion was attempted in the ER. This was unsuccessful. He was started on heparin infusion and cardizem gtt. After being on Bipap for approximately an hour his breathing stabilized. He is currently maintained on nasal cannula and maintaining oxygen saturations. He continues to be in afib with variable ventricular rates. Chest x-ray suspicious for partial left lower lobe bronchopneumonia. CTA reveals early bibasilar pneumonia left greater than right, mild interstitial pulmonary edema and no evidence of PE. Laboratory data reviewed, WBC 1.5, hemoglobin 19.6, platelets 117, d-dimer 13.3, ABG unremarkable, sodium 141, potassium 3.6, creatinine 1.34, lactic acid on admission 2.2 repeat after hydration 2.0, troponin negative 1, and T proBNP 541, magnesium 1.8 and Covid negative REVIEW OF SYSTEMS At the time of my exam: CONSTITUTIONAL: Denies fever or chills. CARDIOVASCULAR: Denies chest pain, shortness of breath, orthopnea, PND or palpitations. RESPIRATORY: Denies cough. GASTROINTESTINAL: Denies abdominal pain, diarrhea, constipation, nausea or vomiting. MUSCULOSKELETAL: Denies myalgias. NEUROLOGIC: Denies numbness, tingling, headacbe or weakness. ENDOCRINE: Denies fatigue, weight change, polydipsia or polyurina. GENITOURINARY: Denies burning, hematuria or urgency with micturation. HEMATOLOGIC: Denies history of anemia or bleeding. PHYSICAL EXAMINATION Blood pressure 128/72 heart rate 100 afebrile and maintaining oxygen saturation on room air. CONSTITUTIONAL: No apparent distress. Generalized redness noted to the face. HEENT: Head is normocephalic. Pupils are equal, round. Sclerae anicteric. Mucous membranes of the mouth are moist. No JVD. No carotid bruit. CHEST EXAMINATION: Lungs are clear to auscultation. No chest wall tenderness is noted on palpation or with deep breathing. HEART EXAMINATION: Irregular rate and rhythm. S1, S2 heard. No murmurs, gallops or rub. ABDOMEN: Soft, nontender. Positive bowel sounds. EXTREMITIES: 2+ peripheral pulses, no lower extremity edema and no calf tenderness. NEUROLOGIC EXAMINATION: Patient is awake, alert and oriented x3. ASSESSMENT New onset paroxysmal atrial fibrillation with rapid ventricular rates Hypertension Sleep apnea Pneumonia Lactic acidosis Acute kidney injury Hypoxia Regular alcohol intake Marijuana use Cigar smoker Obesity, BMI 43 PLAN Obtain 2D echocardiogram and doppler study to assess cardiac structure and function. Initiate lopressor 25 mg BID. Obtain records from PCP, he states he had labs drawn around May of last year. Repeat BMP and troponin. Check TSH, A1C and lipid panel. Initiate eliquis 5 mg BID for thromboembolic protection and discontinue heparin infusion. Further recommendations to follow based on clinical course. Thank you kindly for this consultation. Nurse Practitioner note has been reviewed, I agree with a documented findings and plan of care. Patient was seen and examined. Past Medical History Past Medical History: Hypertension Additional Past Medical History / Comment(s): constipation,hx ruptured colon History of Any Multi-Drug Resistant Organisms: None Reported Past Surgical History: Bowel Resection, Orthopedic Surgery Additional Past Surgical History / Comment(s): ORIF lt hand,orthoscopic kilo knees Past Anesthesia/Blood Transfusion Reactions: Postoperative Nausea & Vomiting (PONV) Additional Past Anesthesia/Blood Transfusion Reaction / Comment(s): no hx blood transfusion Past Psychological History: No Psychological Hx Reported Smoking Status: Never smoker Past Alcohol Use History: Occasional Additional Past Alcohol Use History / Comment(s): Pt states drinks 3 days a week. Denies hx of withdrawal. Past Drug Use History: None Reported - Past Family History Mother Family Medical History: Cancer Additional Family Medical History / Comment(s): pancreatic Father Family Medical History: Cancer Additional Family Medical History / Comment(s): bone Medications and Allergies Home Medications Medication Instructions Recorded Confirmed Type Lisinopril-Hctz 10-12.5 mg 1 tab PO QAM 11/30/16 01/29/21 History [Zestoretic 10-12.5] Apixaban [Eliquis] 5 mg PO BID #60 tab 01/30/21 Rx Allergies Allergy/AdvReac Type Severity Reaction Status Date / Time No Known Allergies Allergy Verified 01/29/21 20:59 Physical Exam Vitals: Vital Signs Temp Pulse Pulse Resp BP BP Pulse Ox 01/30/21 04:00 100 16 128/72 01/30/21 02:00 103 H 16 01/30/21 00:00 97.8 F 103 H 16 132/68 01/29/21 23:31 98.4 F 95 20 102/89 94 L 01/29/21 22:00 102 H 30 H 119/80 92 L 01/29/21 21:28 108 H 01/29/21 21:25 98.1 F 98 32 H 94/56 98 01/29/21 21:18 100 01/29/21 21:04 124 H 146/109 95 01/29/21 20:47 154 H 40 H 120/71 96 01/29/21 20:30 115 H 38 H 111/73 94 L 01/29/21 20:08 102 H 32 H 179/135 93 L 01/29/21 19:56 97.8 F 76 30 H 151/95 87 L Intake and Output 01/29/21 01/30/21 01/30/21 22:59 06:59 14:59 Intake Total 159.507 Output Total 600 Balance -440.493 Intake: Intake, IV Titration 159.507 Amount Heparin Sod,Pork in 0.45% 159.507 NaCl 25,000 unit In 0.45 % NaCl 1 250ml.bag @ 18 UNITS/KG/HR 21.555 mls/hr IV .[id number] [facility] Rx#: [id number] Output: Urine 600 Other: Voiding Method Toilet Urinal Weight 119.748 kg 128.5 kg Results 01/29/21 20:18 01/29/21 20:18 Cardiac Enzymes 01/29/21 01/29/21 Range/Units 20:18 20:18 AST 40 (17-59) U/L Troponin I <0.012 (0.000-0.034) ng/mL Coagulation 01/29/21 01/30/21 Range/Units 21:02 01:36 PT 10.8 (9.0-12.0) sec APTT 56.1 H 67.7 H (22.0-30.0) sec CBC 01/29/21 Range/Units 20:18 WBC 1.5 L (3.8-10.6) k/uL RBC 6.16 H (4.30-5.90) m/uL Hgb 19.6 H* (13.0-17.5) gm/dL Hct 56.7 H (39.0-53.0) % Plt Count 117 L (150-450) k/uL Comprehensive Metabolic Panel 01/29/21 Range/Units 20:18 Sodium 141 (137-145) mmol/L Potassium 3.6 (3.5-5.1) mmol/L Chloride 107 (98-107) mmol/L Carbon Dioxide 25 (22-30) mmol/L BUN 23 H (9-20) mg/dL Creatinine 1.34 H (0.66-1.25) mg/dL Glucose 130 H (74-99) mg/dL Calcium 9.0 (8.4-10.2) mg/dL AST 40 (17-59) U/L ALT 29 (4-49) U/L Alkaline Phosphatase 125 (38-126) U/L Total Protein 6.9 (6.3-8.2) g/dL Albumin 4.1 (3.5-5.0) g/dL Current Medications Generic Name Dose Route Start Last Admin Trade Name Freq PRN Reason Stop Dose Admin Albuterol/Ipratropium 3 ml 01/30/21 08:00 Ipratropium-Albuterol 3 Ml Neb INHALATION RT-QID GISELLA Heparin Sodium (Porcine) 0 unit 01/29/21 20:17 Heparin Sodium 1,000 Un/Ml (10ml Vl) IV PER PROTOCOL PRN Low PTT Protocol Heparin Sodium/Sodium Chloride 250 mls @ 21.555 mls/hr 01/29/21 20:30 01/30/21 03:52 25,000 unit/ Sodium Chloride IV 16 units/kg/hr .[id number] GISELLA 19.16 mls/hr Titration Protocol 18 UNITS/KG/HR Diltiazem HCl 125 mg/ Sodium 125 mls @ 10 mls/hr 01/29/21 22:30 01/29/21 23:04 Chloride IV 10 mg/hr .[id number] GISELLA 10 mls/hr Administration 10 MG/HR Metoprolol Tartrate 25 mg 01/30/21 09:00 Metoprolol Tartrate 25 Mg Tab PO BID GISELLA Nitroglycerin 0.4 mg 01/29/21 20:14 01/29/21 20:14 Nitroglycerin Sl Tabs 0.4 Mg Tab SUBLINGUAL 0.4 mg Q5M PRN Administration Chest Pain Prednisone 40 mg 01/30/21 09:00 Prednisone 20 Mg Tab PO DAILY [facility] Intake and Output 01/29/21 01/30/21 01/30/21 22:59 06:59 14:59 Intake Total 159.507 Output Total 600 Balance -440.493 Intake: Intake, IV Titration 159.507 Amount Heparin Sod,Pork in 0.45% 159.507 NaCl 25,000 unit In 0.45 % NaCl 1 250ml.bag @ 18 UNITS/KG/HR 21.555 mls/hr IV .[id number] [facility] Rx#: [id number] Output: Urine 600 Other: Voiding Method Toilet Urinal Weight 119.748 kg 128.5 kg 01/29/21 20:18 01/29/21 20:18
[2021-01-30] MEDS ORDERED: predniSONE 20 MG TAB PO SCH (09:00)
[2021-01-30] MEDS: IPRATROPIUM-ALBUTEROL 3 ML NEB INHALATION SCH ×4 (09:14→19:00)
[2021-01-30] MEDS: METOPROLOL TARTRATE 25 MG TAB PO SCH ×2 (10:12→21:22)
[2021-01-30] MEDS: APIXABAN 5 MG TAB PO SCH ×2 (10:13→21:22)
[2021-01-30] MEDS: DILTIAZEM 125 MG in SODIUM CHLORIDE 0.9% 100 ML IV SCH (10:13)
--- NOTE | 2021-01-30 11:00 | ECHOF ---
Referral Reason:new onset afib MEASUREMENTS -------- HEIGHT: 172.7 cm WEIGHT: 128.4 kg BP: 128/72 RVIDd: 3.5 cm (< 3.3) IVSd: 1.7 cm (0.6 - 1.1) LVIDd: 5.0 cm (3.9 - 5.3) LVPWd: 1.6 cm (0.6 - 1.1) IVSs: 1.9 cm LVIDs: 4.1 cm LVPWs: 2.2 cm LA Diam: 3.9 cm (2.7 - 3.8) LAESV Index (A-L): 27.67 ml/m Ao Diam: 3.6 cm (2.0 - 3.7) AV Cusp: 2.4 cm (1.5 - 2.6) MV EXCURSION: 19.913 mm (> 18.000) MV EF SLOPE: 112 mm/s (70 - 150) EPSS: 0.5 cm RAP: 5.00 mmHg RVSP: 26.36 mmHg FINDINGS -------- Atrial fibrillation. This was a technically difficult study with suboptimal views. The left ventricular size is normal. There is severe concentric left ventricular hypertrophy. Ove rall left ventricular systolic function is mildly impaired with, an EF between 45 - 50 %. The right ventricle is mildly enlarged. Normal LA size by volume 22+/-6 ml/m2. The right atrium is normal in size. Interatrial and interventricular septum intact. The aortic valve is trileaflet and appears structurally normal. The mitral valve is normal. Mild tricuspid regurgitation present. Right ventricular systolic pressure is normal at < 35 mmHg. The pulmonic valve was not well visualized. The aortic root size is normal. Normal inferior vena cava with normal inspiratory collapse consistent with estimated right atrial pre ssure of 5 mmHg. There is no pericardial effusion. CONCLUSIONS -------- 1. The left ventricular size is normal. 2. There is severe concentric left ventricular hypertrophy. 3. Overall left ventricular systolic function is mildly impaired with, an EF between 45 - 50 %. 4. The right ventricle is mildly enlarged. 5. Mild tricuspid regurgitation present. 6. There is no pericardial effusion. [employer] SUPERVISOR: Lynda Telles RDCS
[2021-01-30 11:15] LABS: Calcium 8.4 mg/dL (8.4-10.2); Potassium 3.7 mmol/L (3.5-5.1)
--- NOTE | 2021-01-30 16:03 | US ---
EXAMINATION TYPE: US kidneys/renal and bladder DATE OF EXAM: 01/30/2021 COMPARISON: NONE CLINICAL HISTORY: 60-year-old male abnormal renal function. TECHNIQUE: Multiple sonographic images of the kidneys and bladder are obtained. FINDINGS: EXAM MEASUREMENTS: Right Kidney: 11.5 X 5.9 X 6.3 cm Left Kidney: 10.4 X 5.4 X 5.5 cm No hydronephrosis on either side. Bladder: wnl Bilateral Jets seen: No IMPRESSION: No hydronephrosis.
[2021-01-30] MEDS ORDERED: methylPREDNISolone SOD SUCCI 40 MG/ML 1 ML VIAL IV SCH (16:30)
[2021-01-30 16:34] LABS: Basophils % (A) 0 %; Eosinophils % (A) 0 %; HCT 49.1 % (39.0-53.0); HGB 16.7 gm/dL (13.0-17.5); Lymphocytes # (A) 0.4 k/uL (1.0-4.8); Lymphocytes % (A) 4 %; MCH 31.1 pg (25.0-35.0); MCHC 33.9 g/dL (31.0-37.0); MCV 91.6 fL (80.0-100.0); Mean Platelet Volume 8.2; Monocytes # (A) 0.4 k/uL (0-1.0); Monocytes % (A) 4 %; Neutrophils # (A) 9.4 k/uL (1.3-7.7); Neutrophils % (A) 92 %; Platelet Count 135 k/uL (150-450); RBC 5.36 m/uL (4.30-5.90); RDW 14.3 % (11.5-15.5); WBC 10.2 k/uL (3.8-10.6)
--- NOTE | 2021-01-30 16:50 | P.CONS ---
History of Present Illness - Reason for Consult Consult date: 01/30/21 Polycythemia, bicytopenia - History of Present Illness Patient is a 60-year-old white male with multiple medical problems. The patient came into the emergency room, as he became acutely dizzy while bowling. He also noted some lightheadedness and sweating. He had an episode of nausea and vomiting but denied any chest pain. In the emergency room and was found to have a definitive radiation with rapid ventricular response, and oxygen saturation in the high 80% range. He was therefore admitted for further management and started on rate control medications as well as anticoagulation. CBC on admission showed hemoglobin of 19.1, WBC of 1.5 with ANC 800, and platelets of 135. Consult was therefore placed a further evaluation and recommendations. The patient denied any prior history of malignancy or blood related problems. Labs in 2017 and shown hemoglobin in the 13 range, normal WBC and 1 platelet count in the 130 range. Patient has a history of heavy alcohol use, at least 5-10+ beers per day on a regular basis. He is morbidly obese, and both him and his give a history of heavy snoring. The patient states that he was tested for sleep apnea and was told he doesn't have it. However sleep apnea report in the EMR from 09/02 mentions moderate to possibly severe sleep apnea, and recommends commencing positive pressure respiratory support while sleeping. On further questioning it appeared that the patient did not follow-up after the actual sleep study. Chest imaging with x-rays and CTA showed some bibasilar infiltrate suggestive of possible basilar pneumonia. There was no PE noted. Abdominal ultrasound did not show any hydronephrosis. Review of Systems Constitutional: Reports fatigue, Reports weakness Eyes: denies blurred vision, denies pain Ears: deny: decreased hearing, ear discharge, earache, tinnitus Ears, nose, mouth and throat: Denies headache, Denies sore throat Cardiovascular: Reports as per HPI, Reports decreased exercise tolerance, Reports dyspnea on exertion, Reports irregular heart beat, Reports lightheadedness, Reports palpitations, Reports rapid heart beat Respiratory: Reports dyspnea Gastrointestinal: Denies abdominal pain, Denies diarrhea, Denies nausea, Denies vomiting Genitourinary: Reports as per HPI Musculoskeletal: Denies myalgias Integumentary: Denies pruritus, Denies rash Neurological: Reports as per HPI, Reports weakness Psychiatric: Denies anxiety, Denies depression Endocrine: Denies fatigue, Denies weight change Hematologic/Lymphatic: Reports as per HPI Past Medical History Past Medical History: Hypertension Additional Past Medical History / Comment(s): constipation,hx ruptured colon History of Any Multi-Drug Resistant Organisms: None Reported Past Surgical History: Bowel Resection, Orthopedic Surgery Additional Past Surgical History / Comment(s): ORIF lt hand,orthoscopic kilo knees Past Anesthesia/Blood Transfusion Reactions: Postoperative Nausea & Vomiting (PONV) Additional Past Anesthesia/Blood Transfusion Reaction / Comm: no hx blood transfusion Past Psychological History: No Psychological Hx Reported Smoking Status: Never smoker Past Alcohol Use History: Occasional Additional Past Alcohol Use History / Comment(s): Pt states drinks 3 days a week. Denies hx of withdrawal. Past Drug Use History: None Reported - Past Family History Mother Family Medical History: Cancer Additional Family Medical History / Comment(s): pancreatic Father Family Medical History: Cancer Additional Family Medical History / Comment(s): bone Medications and Allergies Home Medications Medication Instructions Recorded Confirmed Type Lisinopril-Hctz 10-12.5 mg 1 tab PO QAM 11/30/16 01/29/21 History [Zestoretic 10-12.5] Apixaban [Eliquis] 5 mg PO BID #60 tab 01/30/21 Rx Allergies Allergy/AdvReac Type Severity Reaction Status Date / Time No Known Allergies Allergy Verified 01/29/21 20:59 Physical Exam Vitals: Vital Signs Temp Pulse Pulse Resp BP BP Pulse Ox 01/30/21 16:22 98 01/30/21 16:11 103 H 01/30/21 14:13 95 16 01/30/21 12:39 94 16 01/30/21 12:29 96 16 97 01/30/21 11:45 95 18 118/77 96 01/30/21 10:10 99 F 95 16 136/74 93 L 01/30/21 09:24 105 H 01/30/21 09:17 105 H 01/30/21 04:00 100 16 128/72 01/30/21 02:00 103 H 16 01/30/21 00:00 97.8 F 103 H 16 132/68 01/29/21 23:31 98.4 F 95 20 102/89 94 L 01/29/21 22:00 102 H 30 H 119/80 92 L 01/29/21 21:28 108 H 01/29/21 21:25 98.1 F 98 32 H 94/56 98 01/29/21 21:18 100 01/29/21 21:04 124 H 146/109 95 01/29/21 20:47 154 H 40 H 120/71 96 01/29/21 20:30 115 H 38 H 111/73 94 L 01/29/21 20:08 102 H 32 H 179/135 93 L 01/29/21 19:56 97.8 F 76 30 H 151/95 87 L Intake and Output 01/30/21 01/30/21 01/30/21 06:59 14:59 22:59 Intake Total 159.507 595.75 Output Total 600 300 Balance -440.493 295.75 Intake: Intake, IV Titration 159.507 115.75 Amount Diltiazem 125 mg In 115.75 Sodium Chloride 0.9% 100 ml @ 10 MG/HR 10 mls/hr IV .[id number] GISELLA Rx#: [id number] Heparin Sod,Pork in 0.45% 159.507 NaCl 25,000 unit In 0.45 % NaCl 1 250ml.bag @ 18 UNITS/KG/HR 21.555 mls/hr IV .[id number] GISELLA Rx#: [id number] Oral 480 Output: Urine 600 300 Other: Voiding Method Toilet Toilet Urinal Urinal Weight 128.5 kg - Constitutional General appearance: no acute distress - EENT Eyes: EOMI, PERRLA ENT: hearing grossly normal, normal oropharynx - Neck Neck: no lymphadenopathy Thyroid: bilateral: normal size - Respiratory Respiratory: bilateral: diminished - Cardiovascular Rhythm: irregularly irregular Heart sounds: normal: S1, S2 - Gastrointestinal General gastrointestinal: normal bowel sounds, soft - Integumentary Plethoric facies - Neurologic Neurologic: CNII-XII intact - Musculoskeletal Musculoskeletal: strength equal bilaterally - Psychiatric Psychiatric: A&O x's 3, appropriate affect Results CBC & Chem 7: 01/30/21 15:55 01/30/21 09:19 Labs: Abnormal Lab Results - Last 24 Hours (Table) 01/29/21 01/29/21 01/29/21 Range/Units 20:17 20:18 20:18 WBC 1.5 L (3.8-10.6) k/uL RBC 6.16 H (4.30-5.90) m/uL Hgb 19.6 H* (13.0-17.5) gm/dL Hct 56.7 H (39.0-53.0) % Plt Count 117 L (150-450) k/uL Neutrophils # 0.8 L (1.3-7.7) k/uL Lymphocytes # 0.7 L (1.0-4.8) k/uL APTT (22.0-30.0) sec D-Dimer (<0.60) mg/L FEU BUN 23 H (9-20) mg/dL Creatinine 1.34 H (0.66-1.25) mg/dL Glucose 130 H (74-99) mg/dL POC Glucose (mg/dL) 130 H (75-99) mg/dL Plasma Lactic Acid Slade (0.7-2.0) mmol/L HDL Cholesterol (40-60) mg/dL 01/29/21 01/29/21 01/29/21 Range/Units 20:18 20:18 21:02 WBC (3.8-10.6) k/uL RBC (4.30-5.90) m/uL Hgb (13.0-17.5) gm/dL Hct (39.0-53.0) % Plt Count (150-450) k/uL Neutrophils # (1.3-7.7) k/uL Lymphocytes # (1.0-4.8) k/uL APTT 56.1 H (22.0-30.0) sec D-Dimer 13.35 H (<0.60) mg/L FEU BUN (9-20) mg/dL Creatinine (0.66-1.25) mg/dL Glucose (74-99) mg/dL POC Glucose (mg/dL) (75-99) mg/dL Plasma Lactic Acid Slade 2.2 H* (0.7-2.0) mmol/L HDL Cholesterol (40-60) mg/dL 01/29/21 01/30/21 01/30/21 Range/Units 23:41 00:23 01:36 WBC (3.8-10.6) k/uL RBC (4.30-5.90) m/uL Hgb (13.0-17.5) gm/dL Hct (39.0-53.0) % Plt Count (150-450) k/uL Neutrophils # (1.3-7.7) k/uL Lymphocytes # (1.0-4.8) k/uL APTT 67.7 H (22.0-30.0) sec D-Dimer (<0.60) mg/L FEU BUN (9-20) mg/dL Creatinine (0.66-1.25) mg/dL Glucose (74-99) mg/dL POC Glucose (mg/dL) 122 H (75-99) mg/dL Plasma Lactic Acid Slade 2.5 H* (0.7-2.0) mmol/L HDL Cholesterol (40-60) mg/dL 01/30/21 01/30/21 01/30/21 Range/Units 09:19 09:19 15:55 WBC (3.8-10.6) k/uL RBC (4.30-5.90) m/uL Hgb (13.0-17.5) gm/dL Hct (39.0-53.0) % Plt Count 135 L (150-450) k/uL Neutrophils # 9.4 H (1.3-7.7) k/uL Lymphocytes # 0.4 L (1.0-4.8) k/uL APTT 80.7 H (22.0-30.0) sec D-Dimer (<0.60) mg/L FEU BUN 23 H (9-20) mg/dL Creatinine 1.34 H (0.66-1.25) mg/dL Glucose 156 H (74-99) mg/dL POC Glucose (mg/dL) (75-99) mg/dL Plasma Lactic Acid Slade (0.7-2.0) mmol/L HDL Cholesterol 69 H (40-60) mg/dL Comments: Echocardiogram report reviewed. Severe left ventricular hypertrophy with decrease in ejection fraction in the 35-40% range Sleep study report reviewed Chest x-ray: report reviewed CT scan - chest: report reviewed US - abdomen: report reviewed Assessment and Plan (1) Polycythemia Narrative/Plan: The patient has significant polycythemia, with hemoglobin 19.1, which is a major change from her hemoglobin in the 13 range in 2017. Possible etiologies were discussed in detail. At this time is secondary polycythemia appears most likely. The patient appears to have sleep apnea for which he has not had any treatment. In addition he is likely to have at least some degree of hemoconcen tration from his heavy beer consumption. - Check erythropoietin level. IV hydration. Repeat hemoglobin with IV hydration. - If hemoglobin improves markedly with hydration, then this would strongly s upport the above clinical impression. In that situation I would also recommend pulmonary consult to manage his sleep apnea long-term. In addition, in that case, further testing for MPD related markers would not be required. Current Visit: Yes Status: Acute Code(s): D75.1 - SECONDARY POLYCYTHEMIA SNOMED Code(s): 569369422 (2) Bicytopenia Narrative/Plan: The patient did have mildly located count in 2017 transiently. Currently the. Count is again mildly low. WBC decline is more marked. Lab workup will be ordered, with testing for deficiency states, autoimmune markers and paraproteinemia. At this time a primary etiology would be underlying marrow effect from his heavy alcohol consumption, possibly exacerbated by stress of acute illness. - Currently counts are in a safe range and does not require acute intervention - Await results of lab work up - Monitor counts. If ANC declines below 500, and/or patient has fever with ANC less than 1000, consider growth factors. - No contraindication to and the correlation from our standpoint, as long as platelet counts are above 50,000 Current Visit: Yes Status: Acute Code(s): D75.89 - OTHER SPECIFIED DISEASES OF BLOOD AND BLOOD-FORMING ORGANS SNOMED Code(s): 32546883 Plan: Defer to the admitting service and other consultants for management of his other medical problems
[2021-01-30] MEDS: INSULIN ASPART (NovoLOG) 100 UNIT/ML VIAL SQ SCH ×2 (18:13→21:22)
[2021-01-30 18:22] LABS: Hemoglobin A1C 5.9 % (4.0-6.0)
[2021-01-30 19:42] VITALS: RESP 18
--- NOTE | 2021-01-30 19:48 | P.HPIM ---
History of Present Illness H&P Date: 01/30/21 Chief Complaint: Lightheaded History of presenting complaint: This is a very pleasant 60-year-old patient of . Patient presented with an episode of getting lightheaded yesterday. Some shortness of breath. No fever no chills. [place] slightly dizzy. No chest pain. Patient is placed on IV heparin and IV Cardizem drip. Denies any prior cardiac history. Patient was noted to have elevated hemoglobin. Patient is morbidly obese and a history of snoring. And has had's sleep apnea studied the past. And apparently did not follow-up. Patient also does take Aleve and NSAIDs for pain in different joints especially his knee and ankle. He has been taking it for a while. Few times a week. Patient's daughter at the bedside this morning. Review of systems: GEN.: Tired EYES: None HEENT: Starting NECK: None RESPIRATORY: None CARDIOVASCULAR: As above GASTROINTESTINAL: None GENITOURINARY: None MUSCULOSKELETAL: Knee and ankle pain LYMPHATICS: None HEMATOLOGICAL: None PSYCHIATRY: None NEUROLOGICAL: None Past medical history to include: Hypertension, constipation, ruptured: With bowel resection Social history: Patient is a service enterprise sales executive. . Could drink up to 5-6 drinks a day. No smoking Physical examination: VITAL SIGNS: 97.8, 115, 32, 151 with 95, 87% on room air GENERAL: BMI 43.1, laying in bed, slightly short of breath. EYES: Pupils equal. Conjunctiva normal. HEENT: External appearance of nose and ears normal, oral cavity grossly normal. NECK: JVD unable to assess masses not palpable. HEART: Heart sounds irregular no edema. LUNGS: Respiratory rate normal; clear to auscultation. ABDOMEN: Soft, nontender, liver spleen not palpable, no masses palpable. PSYCH: Alert and oriented x3; mood and affect normal. NEUROLOGICAL: Cranial nerves grossly intact; no facial asymmetry, power and sensation grossly intact. LYMPHATICS: No lymph nodes palpable in the axilla and neck INVESTIGATIONS, reviewed in the clinical context: WBC 1.5 hemoglobin 98.6 platelets 117 d-dimer 13.3 potassium 3.6 bun 23 creatinine 1.34 lactic acid 2.2 Troponin I less than 0.012 proBNP 541 Coronavirus [PCr]-not detected EKG tracing personally reviewed by me-atrial flutter fibrillation with a rapid ventilator rate Chest x-ray film personally reviewed by me-questionable infiltrate CT angios chest: Bibasilar groundglass opacities 2-D echocardiogram: Atrial fibrillation. Severe concentric LVH. EF 45-50% Assessment and plan: -New onset of atrial flutter fibrillation with a rapid ventricular rate. With no prior history. Patient was started on IV Cardizem and IV heparin the ER. This morning swished over to eliquis and IV heparin discontinued. -Morbid obesity BMI 43.1 Weight loss measures and follow-up with PCP -Primary osteoarthritis in the knee in the ankle Use Tylenol when necessary -Polycythemia likely secondary could be from obesity hypoventilation syndrome For further workup for sleep apnea -Sleep apnea syndrome Follow-up with pulmonary -Leukopenia with thrombocytopenia Likely from marrow suppression from chronic alcohol intake -Alcohol use disorder -Kidney injury unable to determine at this point acute versus chronic. Patient given some IV fluids. Repeat labs in the morning. Renal ultrasound. Nephrology consultation. Care was discussed at length with the patient and daughter the bedside. Ques tions answered. Consultation to cardiology, hematology, nephrology Given the complexity and severity of patient's condition expect the patient to be in the hospital at least for 2 overnights Past Medical History Past Medical History: Hypertension Additional Past Medical History / Comment(s): constipation,hx ruptured colon History of Any Multi-Drug Resistant Organisms: None Reported Past Surgical History: Bowel Resection, Orthopedic Surgery Additional Past Surgical History / Comment(s): ORIF lt hand,orthoscopic kilo knees Past Anesthesia/Blood Transfusion Reactions: Postoperative Nausea & Vomiting (PONV) Additional Past Anesthesia/Blood Transfusion Reaction / Comment(s): no hx blood transfusion Past Psychological History: No Psychological Hx Reported Smoking Status: Never smoker Past Alcohol Use History: Occasional Additional Past Alcohol Use History / Comment(s): Pt states drinks 3 days a week. Denies hx of withdrawal. Past Drug Use History: None Reported - Past Family History Mother Family Medical History: Cancer Additional Family Medical History / Comment(s): pancreatic Father Family Medical History: Cancer Additional Family Medical History / Comment(s): bone Medications and Allergies Home Medications Medication Instructions Recorded Confirmed Type Lisinopril-Hctz 10-12.5 mg 1 tab PO QAM 11/30/16 01/29/21 History [Zestoretic 10-12.5] Apixaban [Eliquis] 5 mg PO BID #60 tab 01/30/21 Rx Allergies Allergy/AdvReac Type Severity Reaction Status Date / Time No Known Allergies Allergy Verified 01/29/21 20:59 Physical Exam Vitals: Vital Signs Temp Pulse Pulse Resp BP BP Pulse Ox 01/30/21 10:10 99 F 68 18 136/74 93 L 01/30/21 09:24 105 H 01/30/21 09:17 105 H 01/30/21 04:00 100 16 128/72 01/30/21 02:00 103 H 16 01/30/21 00:00 97.8 F 103 H 16 132/68 01/29/21 23:31 98.4 F 95 20 102/89 94 L 01/29/21 22:00 102 H 30 H 119/80 92 L 01/29/21 21:28 108 H 01/29/21 21:25 98.1 F 98 32 H 94/56 98 01/29/21 21:18 100 01/29/21 21:04 124 H 146/109 95 01/29/21 20:47 154 H 40 H 120/71 96 01/29/21 20:30 115 H 38 H 111/73 94 L 01/29/21 20:08 102 H 32 H 179/135 93 L 01/29/21 19:56 97.8 F 76 30 H 151/95 87 L Intake and Output 01/29/21 01/30/21 01/30/21 22:59 06:59 14:59 Intake Total 159.507 351.5 Output Total 600 Balance -440.493 351.5 Intake: Intake, IV Titration 159.507 111.5 Amount Diltiazem 125 mg In 111.5 Sodium Chloride 0.9% 100 ml @ 10 MG/HR 10 mls/hr IV .[id number] GISELLA Rx#: [id number] Heparin Sod,Pork in 0.45% 159.507 NaCl 25,000 unit In 0.45 % NaCl 1 250ml.bag @ 18 UNITS/KG/HR 21.555 mls/hr IV .[id number] GISELLA Rx#: [id number] Oral 240 Output: Urine 600 Other: Voiding Method Toilet Urinal Weight 119.748 kg 128.5 kg Results CBC & Chem 7: 01/30/21 15:55 01/30/21 09:19 Labs: Abnormal Lab Results - Last 24 Hours (Table) 01/29/21 01/29/21 01/29/21 Range/Units 20:17 20:18 20:18 WBC 1.5 L (3.8-10.6) k/uL RBC 6.16 H (4.30-5.90) m/uL Hgb 19.6 H* (13.0-17.5) gm/dL Hct 56.7 H (39.0-53.0) % Plt Count 117 L (150-450) k/uL Neutrophils # 0.8 L (1.3-7.7) k/uL Lymphocytes # 0.7 L (1.0-4.8) k/uL APTT (22.0-30.0) sec D-Dimer (<0.60) mg/L FEU BUN 23 H (9-20) mg/dL Creatinine 1.34 H (0.66-1.25) mg/dL Glucose 130 H (74-99) mg/dL POC Glucose (mg/dL) 130 H (75-99) mg/dL Plasma Lactic Acid Slade (0.7-2.0) mmol/L 01/29/21 01/29/21 01/29/21 Range/Units 20:18 20:18 21:02 WBC (3.8-10.6) k/uL RBC (4.30-5.90) m/uL Hgb (13.0-17.5) gm/dL Hct (39.0-53.0) % Plt Count (150-450) k/uL Neutrophils # (1.3-7.7) k/uL Lymphocytes # (1.0-4.8) k/uL APTT 56.1 H (22.0-30.0) sec D-Dimer 13.35 H (<0.60) mg/L FEU BUN (9-20) mg/dL Creatinine (0.66-1.25) mg/dL Glucose (74-99) mg/dL POC Glucose (mg/dL) (75-99) mg/dL Plasma Lactic Acid Slade 2.2 H* (0.7-2.0) mmol/L 01/29/21 01/30/21 01/30/21 Range/Units 23:41 00:23 01:36 WBC (3.8-10.6) k/uL RBC (4.30-5.90) m/uL Hgb (13.0-17.5) gm/dL Hct (39.0-53.0) % Plt Count (150-450) k/uL Neutrophils # (1.3-7.7) k/uL Lymphocytes # (1.0-4.8) k/uL APTT 67.7 H (22.0-30.0) sec D-Dimer (<0.60) mg/L FEU BUN (9-20) mg/dL Creatinine (0.66-1.25) mg/dL Glucose (74-99) mg/dL POC Glucose (mg/dL) 122 H (75-99) mg/dL Plasma Lactic Acid Slade 2.5 H* (0.7-2.0) mmol/L
[2021-01-30 20:28] LABS: Glucose,Whole Blood 144 mg/dL (75-99)
[2021-01-31 03:17] LABS: Protein, Total 5.9 g/dL (6.2-8.2)
[2021-01-31 06:09] LABS: Glucose,Whole Blood 129 mg/dL (75-99)
[2021-01-31] MEDS: INSULIN ASPART (NovoLOG) 100 UNIT/ML VIAL SQ SCH (06:14)
[2021-01-31] MEDS: IPRATROPIUM-ALBUTEROL 3 ML NEB INHALATION SCH ×2 (07:18→10:42)
[2021-01-31] MEDS: METOPROLOL TARTRATE 25 MG TAB PO SCH (09:31)
[2021-01-31] MEDS: APIXABAN 5 MG TAB PO SCH (09:31)
[2021-01-31 10:44] VITALS: PULSE 88
--- NOTE | 2021-01-31 10:57 | P.CNPUL ---
History of Present Illness Consult date: 01/30/21 Reason for consult: dyspnea, cough, pneumonia Chief complaint: One-day history of shortness of breath History of present illness: this is a 60-year-old morbidly obese male with prior history of smoking, patient came into the hospital 1 day history of increased shortness of breath cough and A. fib with RVR, patient noted to have very abnormal labs includingWBC count of 1500 hemoglobin of 19.6, patient has been on heparin platelet count was 117, d- dimer elevated 13.35, BUN/creatinine is 23 and 1.4, lactic acid 2.5, sugar 130, patient does have a history of snoring, patient also consumes alcohol on a regular basis Review of Systems All systems: negative Past Medical History Past Medical History: Hypertension Additional Past Medical History / Comment(s): constipation,hx ruptured colon History of Any Multi-Drug Resistant Organisms: None Reported Past Surgical History: Bowel Resection, Orthopedic Surgery Additional Past Surgical History / Comment(s): ORIF lt hand,orthoscopic kilo knees Past Anesthesia/Blood Transfusion Reactions: Postoperative Nausea & Vomiting (PONV) Additional Past Anesthesia/Blood Transfusion Reaction / Comment(s): no hx blood transfusion Past Psychological History: No Psychological Hx Reported Smoking Status: Never smoker Past Alcohol Use History: Occasional Additional Past Alcohol Use History / Comment(s): Pt states drinks 3 days a week. Denies hx of withdrawal. Past Drug Use History: None Reported - Past Family History Mother Family Medical History: Cancer Additional Family Medical History / Comment(s): pancreatic Father Family Medical History: Cancer Additional Family Medical History / Comment(s): bone Medications and Allergies Home Medications Medication Instructions Recorded Confirmed Type Lisinopril-Hctz 10-12.5 mg 1 tab PO QAM 11/30/16 01/29/21 History [Zestoretic 10-12.5] Apixaban [Eliquis] 5 mg PO BID #60 tab 01/30/21 Rx Allergies Allergy/AdvReac Type Severity Reaction Status Date / Time No Known Allergies Allergy Verified 01/29/21 20:59 Physical Exam Vitals: Vital Signs Temp Pulse Pulse Resp BP BP Pulse Ox 01/30/21 14:13 95 16 01/30/21 12:39 94 16 01/30/21 12:29 96 16 97 01/30/21 11:45 95 18 118/77 96 01/30/21 10:10 99 F 95 16 136/74 93 L 01/30/21 09:24 105 H 01/30/21 09:17 105 H 01/30/21 04:00 100 16 128/72 01/30/21 02:00 103 H 16 01/30/21 00:00 97.8 F 103 H 16 132/68 01/29/21 23:31 98.4 F 95 20 102/89 94 L 01/29/21 22:00 102 H 30 H 119/80 92 L 01/29/21 21:28 108 H 01/29/21 21:25 98.1 F 98 32 H 94/56 98 01/29/21 21:18 100 01/29/21 21:04 124 H 146/109 95 01/29/21 20:47 154 H 40 H 120/71 96 01/29/21 20:30 115 H 38 H 111/73 94 L 01/29/21 20:08 102 H 32 H 179/135 93 L 01/29/21 19:56 97.8 F 76 30 H 151/95 87 L Intake and Output 01/30/21 01/30/21 01/30/21 06:59 14:59 22:59 Intake Total 159.507 595.75 Output Total 600 300 Balance -440.493 295.75 Intake: Intake, IV Titration 159.507 115.75 Amount Diltiazem 125 mg In 115.75 Sodium Chloride 0.9% 100 ml @ 10 MG/HR 10 mls/hr IV .[id number] [facility] Rx#: [id number] Heparin Sod,Pork in 0.45% 159.507 NaCl 25,000 unit In 0.45 % NaCl 1 250ml.bag @ 18 UNITS/KG/HR 21.555 mls/hr IV .[id number] [facility] Rx#: [id number] Oral 480 Output: Urine 600 300 Other: Voiding Method Toilet Toilet Urinal Urinal Weight 128.5 kg - Constitutional General appearance: disheveled, morbidly obese - EENT Eyes: EOMI, PERRLA Ears: bilateral: normal - Neck Carotids: bilateral: upstroke normal - Respiratory Respiratory: bilateral: diminished - Cardiovascular Rhythm: regular Heart sounds: normal: S1, S2 - Gastrointestinal General gastrointestinal: distended, normal bowel sounds, soft - Neurologic Neurologic: CNII-XII intact - Musculoskeletal Musculoskeletal: gait normal, generalized weakness, strength equal bilaterally - Psychiatric Psychiatric: A&O x's 3, appropriate affect, intact judgment & insight Results - Laboratory Findings CBC and BMP: 01/30/21 15:55 01/30/21 09:19 ABG ABG pH 7.37 (7.35-7.45) 01/29/21 22:03 ABG pCO2 38 mmHg (35-45) 01/29/21 22:03 ABG pO2 86 mmHg (83-108) 01/29/21 22:03 ABG O2 Saturation 95.8 % (94-97) 01/29/21 22:03 PT/INR, D-dimer PT 10.8 sec (9.0-12.0) 01/29/21 21:02 INR 1.0 (<1.2) 01/29/21 21:02 D-Dimer 13.35 mg/L FEU (<0.60) H 01/29/21 20:18 Abnormal lab findings: Abnormal Labs 01/29/21 01/29/21 01/29/21 20:17 20:18 20:18 WBC 1.5 L RBC 6.16 H Hgb 19.6 H* Hct 56.7 H Plt Count 117 L Neutrophils # 0.8 L Lymphocytes # 0.7 L APTT D-Dimer BUN 23 H Creatinine 1.34 H Glucose 130 H POC Glucose (mg/dL) 130 H Plasma Lactic Acid Slade HDL Cholesterol 01/29/21 01/29/21 01/29/21 20:18 20:18 21:02 WBC RBC Hgb Hct Plt Count Neutrophils # Lymphocytes # APTT 56.1 H D-Dimer 13.35 H BUN Creatinine Glucose POC Glucose (mg/dL) Plasma Lactic Acid Slade 2.2 H* HDL Cholesterol 01/29/21 01/30/21 01/30/21 23:41 00:23 01:36 WBC RBC Hgb Hct Plt Count Neutrophils # Lymphocytes # APTT 67.7 H D-Dimer BUN Creatinine Glucose POC Glucose (mg/dL) 122 H Plasma Lactic Acid Slade 2.5 H* HDL Cholesterol 01/30/21 01/30/21 09:19 09:19 WBC RBC Hgb Hct Plt Count Neutrophils # Lymphocytes # APTT 80.7 H D-Dimer BUN 23 H Creatinine 1.34 H Glucose 156 H POC Glucose (mg/dL) Plasma Lactic Acid Slade HDL Cholesterol 69 H - Diagnostic Findings Chest x-ray: report reviewed, image reviewed CT scan - chest: report reviewed, image reviewed (finding as noted above negative for pulmonary embolism bilateral pneumonia more so on the left side compared right side) Assessment and Plan Assessment: bilateral pneumonia sepsis due to pneumonia Pancytopenia neutropenia and thrombocytopenia likely related to sepsis Erythrocytosis likely secondary due to sleep disorder breathing and sleep apnea and chronic hypoxia for evaluation of primary causes hematology has been consul odilia History of heavy alcohol use Very likely patient has severe degree of obstructive sleep apnea A. fib with RVR likely lone atrial fibrillation multiple secondary causes including alcoholism sepsis sleep disorder breathing and sleep apnea cardiovascular workup in process Plan: continue broad-spectrum antibiotics Breathing treatments Deep breathing exercise incentive spirometry Repeat labs for tomorrow sleep study as outpatient Further plan of care as per clinical response of the patient Time with Patient: Greater than 30
--- NOTE | 2021-01-31 11:01 | P.PN ---
Subjective Progress Note Date: 01/31/21 Principal diagnosis: bilateral pneumonia sepsis due to pneumonia Pancytopenia neutropenia and thrombocytopenia likely related to sepsis Erythrocytosis likely secondary due to sleep disorder breathing and sleep apnea and chronic hypoxia for evaluation of primary causes hematology has been consulted History of heavy alcohol use Very likely patient has severe degree of obstructive sleep apnea A. fib with RVR likely lone atrial fibrillation multiple secondary causes including alcoholism sepsis sleep disorder breathing and sleep apnea cardiovascular workup in 01/31/2021, patient seen eval examined during the rounds labs reviewed medications reviewed care plan discussed respiratory status slightly better, cough congestion and shortness of breath improved, patient is off of Cardizem drip, repeat labs shows improvement in WBC count and platelet count, hemoglobin slightly better but still showing erythrocytosis, this is a 60-year-old morbidly obese male with prior history of smoking, patient came into the hospital 1 day history of increased shortness of breath cough and A. fib with RVR, patient noted to have very abnormal labs includingWBC count of 1500 hemoglobin of 19.6, patient has been on heparin platelet count was 117, d- dimer elevated 13.35, BUN/creatinine is 23 and 1.4, lactic acid 2.5, sugar 130, patient does have a history of snoring, patient also consumes alcohol on a regular basis Objective - Vital Signs Vital signs: Vital Signs Temp 97.9 F 01/30/21 18:10 Pulse 88 01/31/21 10:53 Resp 18 01/31/21 04:00 BP 144/91 01/31/21 04:00 Pulse Ox 94 L 01/31/21 04:00 Intake & Output 01/30/21 01/31/21 01/31/21 18:59 06:59 18:59 Intake Total 595.75 450 Output Total 300 Balance 295.75 450 Weight 127.4 kg Intake: Intake, IV Titration 115.75 Amount Diltiazem 125 mg In 115.75 Sodium Chloride 0.9% 100 ml @ 10 MG/HR 10 mls/hr IV .[id number] [facility] Rx#: [id number] Oral 480 450 Output: Urine 300 Other: Voiding Method Toilet Toilet Urinal Urinal # Voids 3 - Exam - Constitutional General appearance: disheveled, morbidly obese - EENT Eyes: EOMI, PERRLA Ears: bilateral: normal - Neck Carotids: bilateral: upstroke normal - Respiratory Respiratory: bilateral: diminished - Cardiovascular Rhythm: regular Heart sounds: normal: S1, S2 - Gastrointestinal General gastrointestinal: distended, normal bowel sounds, soft - Neurologic Neurologic: CNII-XII intact - Musculoskeletal Musculoskeletal: gait normal, generalized weakness, strength equal bilaterally - Psychiatric Psychiatric: A&O x's 3, appropriate affect, intact judgment & insight - Labs CBC & Chem 7: 01/30/21 15:55 01/30/21 09:19 Labs: Abnormal Lab Results - Last 24 Hours (Table) 01/30/21 01/30/21 01/30/21 Range/Units 09:19 09:19 15:55 Plt Count (150-450) k/uL Neutrophils # (1.3-7.7) k/uL Lymphocytes # (1.0-4.8) k/uL APTT 80.7 H (22.0-30.0) sec BUN 23 H (9-20) mg/dL Creatinine 1.34 H (0.66-1.25) mg/dL Glucose 156 H (74-99) mg/dL POC Glucose (mg/dL) (75-99) mg/dL Total Protein (PEP) 5.9 L (6.2-8.2) g/dL HDL Cholesterol 69 H (40-60) mg/dL 01/30/21 01/30/21 01/31/21 Range/Units 15:55 20:27 06:08 Plt Count 135 L (150-450) k/uL Neutrophils # 9.4 H (1.3-7.7) k/uL Lymphocytes # 0.4 L (1.0-4.8) k/uL APTT (22.0-30.0) sec BUN (9-20) mg/dL Creatinine (0.66-1.25) mg/dL Glucose (74-99) mg/dL POC Glucose (mg/dL) 144 H 129 H (75-99) mg/dL Total Protein (PEP) (6.2-8.2) g/dL HDL Cholesterol (40-60) mg/dL Assessment and Plan Assessment: bilateral pneumonia sepsis due to pneumonia Pancytopenia neutropenia and thrombocytopenia likely related to sepsis, As sepsis improving lactic acid is down pancytopenia also improve Erythrocytosis likely secondary due to sleep disorder breathing and sleep apnea and chronic hypoxia for evaluation of primary causes hematology has been consulted History of heavy alcohol use Very likely patient has severe degree of obstructive sleep apnea A. fib with RVR likely lone atrial fibrillation multiple secondary causes including alcoholism sepsis sleep disorder breathing and sleep apnea cardiovascular workup in process Plan: continue broad-spectrum antibiotics Breathing treatments Deep breathing exercise incentive spirometry Repeat labs for tomorrow sleep study as outpatient Further plan of care as per clinical response of the patient Time with Patient: Greater than 30
[2021-01-31 11:05] LABS: Calcium 8.8 mg/dL (8.4-10.2); Potassium 3.7 mmol/L (3.5-5.1)
--- NOTE | 2021-01-31 13:23 | P.PN ---
Subjective Progress Note Date: 01/31/21 This is a pleasant 60-year-old male with a past medical history significant for hypertension, regular heavy alcohol intake, sleep apnea, marijuana use and cigar smoker. He denies prior history of coronary artery disease and does not follow with a lemon picker. We were asked to see in consultation for new-onset atrial fibrillation. He states he was bowling when he had an acute onset of feeling dizzy and lightheaded, diaphoretic and short of breath. He had a friend drive him home and then his drove him to the hospital. In the interim he also had an episode of nausea and vomiting. He denies any significant palpitations or chest discomfort. On arrival to the emergency department he was noted to be in atrial fibrillation with rapid ventricular rate. He also was hypoxic at 87%. He was initiated on Bipap and apparently cardioversion was attempted in the ER. This was unsuccessful. He was started on heparin infusion and cardizem gtt. After being on Bipap for approximately an hour his breathing stabilized. Chest x-ray suspicious for partial left lower lobe bronchopneumonia. CTA reveals early bibasilar pneumonia left greater than right, mild interstitial pulmonary edema and no evidence of PE. Laboratory data reviewed, WBC 1.5, hemoglobin 19.6, platelets 117, d-dimer 13.3, ABG unremarkable, sodium 141, potassium 3.6, creatinine 1.34, lactic acid on admission 2.2 repeat after hydration 2.0, troponin negative 1, and T proBNP 541, magnesium 1.8 and Covid negative. AP labs done yesterday showed a white blood cell count 10,000, hemoglobin 16.7. Yesterday BMP showed sodium 139, potassium 3.7, BUN 23 creatinine 1.04. TSH was normal. Overall the patient is feeling well today. He does not feel the atrial fibrillation. His breathing is stable and he has no chest discomfort. Echocardiogram with Doppler study showed severe concentric LVH, mildly impaired LV systolic function with an ejection fraction between 45-50%, mildly enlarged RV, and mild TR. Objective - Vital Signs Vital signs: Vital Signs Temp 97.9 F 01/30/21 18:10 Pulse 88 01/31/21 10:53 Resp 18 01/31/21 04:00 BP 144/91 01/31/21 04:00 Pulse Ox 94 L 01/31/21 04:00 Intake & Output 01/30/21 01/31/21 01/31/21 18:59 06:59 18:59 Intake Total 595.75 450 240 Output Total 300 Balance 295.75 450 240 Weight 127.4 kg Intake: Intake, IV Titration 115.75 Amount Diltiazem 125 mg In 115.75 Sodium Chloride 0.9% 100 ml @ 10 MG/HR 10 mls/hr IV .[id number] [facility] Rx#: [id number] Oral 480 450 240 Output: Urine 300 Other: Voiding Method Toilet Toilet Urinal Urinal # Voids 3 - Exam PHYSICAL EXAMINATION: HEENT: Head is atraumatic, normocephalic. Pupils equal, round. Neck is supple. There is no elevated jugular venous pressure. HEART EXAMINATION: Heart sounds irregular irregular, S1 and S2 normal. No murmur or gallop heard. CHEST EXAMINATION: Lungs are diminished to auscultation. No chest wall tenderness is noted on palpation or with deep breathing. ABDOMEN: Soft, obese nontender. Bowel sounds are heard. No organomegaly noted. EXTREMITIES: 2+ peripheral pulses with evidence of mild peripheral edema and no calf tenderness noted. NEUROLOGIC patient is awake, alert and oriented x3. . - Labs CBC & Chem 7: 01/30/21 15:55 01/31/21 10:29 Labs: Abnormal Lab Results - Last 24 Hours (Table) 01/30/21 01/30/21 01/30/21 Range/Units 15:55 15:55 20:27 Plt Count 135 L (150-450) k/uL Neutrophils # 9.4 H (1.3-7.7) k/uL Lymphocytes # 0.4 L (1.0-4.8) k/uL BUN (9-20) mg/dL Glucose (74-99) mg/dL POC Glucose (mg/dL) 144 H (75-99) mg/dL Total Protein (PEP) 5.9 L (6.2-8.2) g/dL 01/31/21 01/31/21 Range/Units 06:08 10:29 Plt Count (150-450) k/uL Neutrophils # (1.3-7.7) k/uL Lymphocytes # (1.0-4.8) k/uL BUN 23 H (9-20) mg/dL Glucose 127 H (74-99) mg/dL POC Glucose (mg/dL) 129 H (75-99) mg/dL Total Protein (PEP) (6.2-8.2) g/dL Assessment and Plan Assessment: Newly diagnosed atrial fibrillation with rapid ventricular rates, likely persistent Hypertension Sleep apnea, does not use CPAP Pneumonia Lactic acidosis Acute kidney injury Hypoxia Regular alcohol intake Marijuana use Cigar smoker Obesity, BMI 43 Noncompliance Plan: From cardiology's perspective medications were reviewed and will continue the same. We will see the patient in the office as an outpatient in 2 weeks at which time further cardiac workup will be ordered. INHALATION THERAPY AIDE note has been reviewed, I agree with a documented findings and plan of care. Patient was seen and examined.
[2021-01-31 15:47] VITALS: BP 176/100; TEMP 98.4
--- NOTE | 2021-01-31 18:17 | CONS ---
CONSULTATION REASON FOR CONSULT: Renal failure. HISTORY OF PRESENT ILLNESS: Patient is a 60-year-old male who was admitted to the hospital with complaints of dizziness, lightheadedness, increased weakness. He did complain of some shortness of breath as well. He was noted to have rapid heart rate and atrial fibrillation. He is maintained on Cardizem drip. This has subsided. He actually wants to go home. The patient denies any prior history of kidney diseases. He did admit to taking Aleve and Motrin prior to admission. Serum creatinine was 1.3 on admission and it is down to 1.04 now. No prior labs available for comparison. The patient has been voiding well. PAST MEDICAL HISTORY: Significant for hypertension and bowel resection, details not available. PAST SURGICAL HISTORY: ORIF left hand, arthroscopy bilateral knees, bowel resection. SOCIAL HISTORY: Negative for smoking, drug abuse or alcohol abuse. MEDICATIONS: Medications prior to admission included Zestoretic and Eliquis. ALLERGIES: None. REVIEW OF SYSTEMS: As per HPI. Other systems negative. EXAMINATION: Patient is comfortable, awake, not in any acute distress. Alert, oriented x3. Blood pressure was elevated 176/100, heart rate 88 per minute, he is afebrile. Examination of the heart S1, S2. Examination of the lungs, bilateral breath sounds are heard. Decreased breath sounds at bases. Abdomen is soft, nontender. Examination of lower extremities shows no significant edema. SPEAKER MOUNTER exam grossly intact. LAB: Show sodium 139, potassium 3.7, chloride 104, BUN 23, creatinine 1.04. UA is not available. Coronavirus PCR negative. ASSESSMENT: 1. Acute kidney injury secondary to atrial fibrillation with rapid ventricular response, currently improved. Check urinalysis. 2. Atrial fibrillation with RVR, now with controlled ventricular response being followed by Cardiology. 3. Obesity. 4. Polycythemia associated with chronic hypoventilation. 5. Obstructive sleep apnea. PLAN: The patient could be discharged from nephrology standpoint. He is advised to avoid use of NSAIDs. Previous UA done in 2017 showed trace protein. He will need repeat labs to be done as outpatient with repeat UA as well. Thank you for this consultation. MMODL / IJN: [id number] /
--- NOTE | 2021-02-01 00:16 | P.DS ---
Providers Date of admission: 01/29/21 22:40 Expected date of discharge: 01/31/21 Attending physician: Constantine Parsons Consults: 01/29/21 22:43 Consult Physician Routine Consulting Provider: Kian Sanchez Consult Reason/Comments: bronchospasm Do you want consulting provider notified?: Yes Consult Physician Routine Consulting Provider: John Padilla Consult Reason/Comments: new onset afib Do you want consulting provider notified?: Yes 01/30/21 13:14 Consult Physician Routine Consulting Provider: Sapphire Zhong Consult Reason/Comments: ckd Do you want consulting provider notified?: Yes 01/30/21 13:19 Consult Physician Routine Consulting Provider: Reji Valencia Consult Reason/Comments: abnormal cbc Do you want consulting provider notified?: Yes 01/30/21 19:47 Consult Physician Routine Consulting Provider: Kian Sanchez Consult Reason/Comments: Sleep apnea Do you want consulting provider notified?: Yes Primary care physician: [facility] Course: Chief Complaint: Lightheaded History of presenting complaint: This is a very pleasant 60-year-old patient of . Patient presented with an episode of getting lightheaded yesterday. Some shortness of breath. No fever no chills. Elizabeth slightly dizzy. No chest pain. Patient is placed on IV heparin and IV Cardizem drip. Denies any prior cardiac history. Patient was noted to have elevated hemoglobin. Patient is morbidly obese and a history of snoring. And has had's sleep apnea studied the past. And apparently did not follow-up. Patient also does take Aleve and NSAIDs for pain in different joints especially his knee and ankle. He has been taking it for a while. Few times a week. Patient's daughter at the bedside this morning. Admitted with atrial flutter fibrillation with a rapid ventricular rate. Initially put on IV Cardizem. Rate now controlled. Initially put on IV heparin now put on eliquis. Patient also felt of bicytopenia felt to be from his alco hol intake. Marrow suppression. Patient advised against the use of the same. Seen by Dr. Valencia from hematology. Patient also felt underlying chronic kidney disease. Creatinine is 1.34. Had been using NSAIDs. Advised against use of the same. Creatinine down to 1.04 patient also drinking significant amount of alcohol. Counseled about the same. Patient also felt to have secondary polycythemia secondary to obstructive sleep apnea. Patient was tested for that before but never followed up. He'll follow-up with pulmonary Discussion and discharge planning more than 35 minutes Consultation: Dr. English from cardiology Dr. Zhong from nephrology Dr. Valencia from hematology Past medical history to include: Hypertension, constipation, ruptured: With bowel resection Social history: Patient is a service executive sales assistant. . Could drink up to 5-6 drinks a day. No smoking Physical examination: VITAL SIGNS: 144/91 GENERAL: Sitting up to chair, comfortable. EYES: Pupils equal. Conjunctiva normal. HEENT: External appearance of nose and ears normal, oral cavity grossly normal. NECK: JVD unable to assess masses not palpable. HEART: Heart sounds irregular no edema. LUNGS: Respiratory rate normal; clear to auscultation. ABDOMEN: Soft, nontender, liver spleen not palpable, no masses palpable. PSYCH: Alert and oriented x3; mood and affect normal. INVESTIGATIONS, reviewed in the clinical context: January 31: Pression 3.7 creatinine 1.04 Rheumatoid factor VIIA any screen negative TSH 2.1 [place] B12 421 LDL 81 WBC 1.5 hemoglobin 98.6 platelets 117 d-dimer 13.3 potassium 3.6 bun 23 creatinine 1.34 lactic acid 2.2 Troponin I less than 0.012 proBNP 541 Coronavirus [PCr]-not detected EKG tracing personally reviewed by me-atrial flutter fibrillation with a rapid ventilator rate Chest x-ray film personally reviewed by me-questionable infiltrate CT angios chest: Bibasilar groundglass opacities 2-D echocardiogram: Atrial fibrillation. Severe concentric LVH. EF 45-50% Assessment and plan: -Persistent atrial flutter fibrillation. Rate controlled On eliquis -Morbid obesity BMI 43.1 Weight loss measures and follow-up with PCP -Primary osteoarthritis in the knee in the ankle Use Tylenol when necessary -Polycythemia likely secondary could be from obesity hypoventilation syndrome For further workup for sleep apnea -Obstructive Sleep apnea syndrome. Never followed up in the past after having had a sleep study Follow-up with pulmonary -Leukopenia with thrombocytopenia Likely from marrow suppression from chronic alcohol intake -Alcohol use disorder Consult -Acute kidney injury from NSAIDs/ATN Better -Possible chronic kidney disease stage I or 2 Will have the patient follow-up with nephrology Disposition: Home Patient Condition at Discharge: Fair Plan - Discharge Summary New Discharge Prescriptions: New Albuterol Inhaler [Ventolin Hfa Inhaler] 1 puff INHALATION Q4H PRN #1 puff PRN Reason: Wheezing Apixaban [Eliquis] 5 mg PO BID #60 tab Metoprolol Tartrate [Lopressor] 25 mg PO BID #60 tab Discontinued Lisinopril-Hctz 10-12.5 mg [Zestoretic 10-12.5] 1 tab PO QAM Discharge Medication List Apixaban [Eliquis] 5 mg PO BID #60 tab 01/30/21 [Rx] Albuterol Inhaler [Ventolin Hfa Inhaler] 1 puff INHALATION Q4H PRN #1 puff 01/31/21 [Rx] Metoprolol Tartrate [Lopressor] 25 mg PO BID #60 tab 01/31/21 [Rx] Follow up Appointment(s)/Referral(s): Reji Valencia MD [STAFF PHYSICIAN] - 1 Week (Please call to set up appointment) Fabian English MD [STAFF PHYSICIAN] - 2 Weeks (please call and set up appointment ) Heath Sheikh MD [Primary Care Provider] - 1-2 days (please and call Tuesday to set up appointment for follow up ) Kian Sanchez MD [STAFF PHYSICIAN] - 1 Week (Please call Tuesday and set up appointment ) Patient Instructions/Handouts: A-fib (Atrial Fibrillation) (DC), A-fib (Atrial Fibrillation) (GEN) Activity/Diet/Wound Care/Special Instructions: [facility] in [facility] pharmacy with the 1st month free and the $10/month copay card applied. no alcohol cbc/bmp - 7 days Discharge Disposition: HOME SELF-CARE
[2021-02-01 11:47] LABS: Free Kappa Lt Chain Qnt, Serum 1.54 mg/dL (0.33-1.94)
[2021-02-03 07:44] LABS: Methylmalonic Acid 0.27 umol/L (<0.40)
[2021-02-04 12:37] LABS: Albumin 3.46 g/dL (3.80-4.90); Gamma Globulin 0.77 g/dL (0.70-1.50)
--- NOTE | 2021-02-19 13:09 | CDI ---
Documentation Clarification Form Date: 02/19/21 From: Lois Card Phone: Admit Date: 01/29/2021 10:40:00 PM Patient Name: Mick Magallon Visit Number: [id number] Discharge Date: 01/31/2021 01:15:00 PM ATTENTION: The Clinical Documentation Specialists (CDI) and [facility] Coding Staff appreciate your assistance in clarifying documentation. Please respond to the clarification below the line at the bottom and electronically sign. The CDI & [facility] Coding staff will review the response and follow-up if needed. Please note: Queries are made part of the Legal Health Record. If you have any questions, please contact the author of this message via ITS. Dr. Constantine Parsons, Atrial Flutter is documented in your H&P and DS. Additional clarification regarding the type of Atrial Flutter is requested. History/Risk factors: paroxysmal atrial fibrillation, hypertensive heart disease w CKD Stage 1, ATN, alcoholism Clinical Indicators: EKG tracing personally reviewed by me-atrial flutter fibrillation with a rapid ventilator rate EKG/telemetry: atrial fibrillation with rapid ventricular response. Vent rate 124, QRS 82, QT/QTc 350/502. Treatment: cardioversion attempted in ED, IV Heparin, IV Cardizem, Apixaban 5 mg po BID Please clarify the type of Atrial Flutter, if known: [ ] Typical/Type I [ ] Atypical/Type II [ ] Other, please specify [ ] Unable to determine Unable to determine MTDD
--- NOTE | 2021-02-19 13:15 | CDI ---
Documentation Clarification Form Date: 02/19/21 From: Lois Card Phone: Admit Date: 01/29/2021 10:40:00 PM Patient Name: Mick Magallon Visit Number: [id number] Discharge Date: 01/31/2021 01:15:00 PM ATTENTION: The Clinical Documentation Specialists (CDI) and [facility] Coding Staff appreciate your assistance in clarifying documentation. Please respond to the clarification below the line at the bottom and electronically sign. The CDI & [facility] Coding staff will review the response and follow-up if needed. Please note: Queries are made part of the Legal Health Record. If you have any questions, please contact the author of this message via ITS. Dr. Constantine Parsons, Sepsis due to pneumonia is documented in Dr Sanchez's consult and progress note, but is not noted in subsequent documentation. Clarification is requested. 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
== END 2021-01-31 13:15 | disposition home or self-care (01) | DRG 308 ==
LOC: EC 19:46 → 3SCARD 22:40
PROVIDERS: ADMIT Hospitalist; ATTEND Hospitalist
PROC: 5A2204Z Restoration of Cardiac Rhythm, Single (ICD-10-PCS; principal; 2021-01-29)
PROC: 5A09357 Assistance with Respiratory Ventilation, Less than 24 Consecutive Hours, Continuous Positive Airway Pressure (ICD-10-PCS; 2021-01-29)
DX: I48.0 Paroxysmal atrial fibrillation (principal); N17.0 Acute kidney failure with tubular necrosis; J18.9 Pneumonia, unspecified organism; D61.818 Other pancytopenia; E87.2 Acidosis; E66.2 Morbid (severe) obesity with alveolar hypoventilation; Z68.41 Body mass index [BMI] 40.0-44.9, adult; I13.10 Hypertensive heart and chronic kidney disease without heart failure, with stage 1 through stage 4 chronic kidney disease, or unspecified chronic kidney disease; F10.20 Alcohol dependence, uncomplicated; I48.92 Unspecified atrial flutter; Z20.822 Contact with and (suspected) exposure to COVID-19; N18.1 Chronic kidney disease, stage 1; D75.1 Secondary polycythemia; G47.33 Obstructive sleep apnea (adult) (pediatric); J98.01 Acute bronchospasm; M17.10 Unilateral primary osteoarthritis, unspecified knee; M19.079 Primary osteoarthritis, unspecified ankle and foot; T39.395A Adverse effect of other nonsteroidal anti-inflammatory drugs [NSAID], initial encounter; R09.02 Hypoxemia; K59.00 Constipation, unspecified; F17.290 Nicotine dependence, other tobacco product, uncomplicated; Z71.6 Tobacco abuse counseling; Z79.899 Other long term (current) drug therapy; Z90.49 Acquired absence of other specified parts of digestive tract; Z87.19 Personal history of other diseases of the digestive system; Z87.39 Personal history of other diseases of the musculoskeletal system and connective tissue; Z98.890 Other specified postprocedural states; Z80.0 Family history of malignant neoplasm of digestive organs; Z80.8 Family history of malignant neoplasm of other organs or systems; Z91.19 Patient's noncompliance with other medical treatment and regimen
CPT/HCPCS: 36415; 36600; 71045; 71275; 76770; 80048; 80053; 80061; 82607; 82668; 82747; 82805; 83036; 83605; 83690; 83735; 83880; 83883; 83921; 84165; 84443; 84484; 85025; 85379; 85610; 85730; 86038; 86334; 86431; 87635; 93005; 93306; 94640; 94660; 94760; 96374; 96375; 99285